=== PATIENT | female | born 1975 | race Hispanic/Latino ===

== ENCOUNTER 2018-04-12 17:37 | Emergency (ER) | payer SELFPAY ==
--- NOTE | 2018-04-12 20:26 | ER ---
Nurse's Notes [facility] Name: Mima Fisher Age: 42 yrs Sex: Female : 1975 Arrival Date: 04/12/2018 Time: 17:39 Bed 13 Private MD: None, None Diagnosis: Presentation: 04/12 17:48 Presenting complaint: Patient states: "I woke up from a nap and my blood pressure was aa5 high 187/104 and I also feel shaky, tingling all over, and I'm having chest pressure". Transition of care: patient was not received from another setting of care. Onset of symptoms was April 12, 2018. Risk Assessment: Do you want to hurt yourself or someone else? Patient reports no desire to harm self or others. Initial Sepsis Screen: Does the patient meet any 2 criteria? No. Patient's initial sepsis screen is negative. Does the patient have a suspected source of infection? No. Patient's initial sepsis screen is negative. Care prior to arrival: None. 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 - Social history:: Smoking status: Patient/guardian denies using tobacco. - Ebola Screening: : No symptoms or risks identified at this time. Vital Signs: 17:50 BP 159 / 99; Pulse 61; Resp 18 S; Temp 97.9(O); Pulse Ox 100% on R/A; Weight 72.57 kg aa5 (R); Height 5 ft. 2 in. (157.48 cm) (R); Pain 0/10; 17:50 Body Mass Index 29.26 (72.57 kg, 157.48 cm) aa5 ED Course: 17:39 Patient arrived in ED. mr 17:40 None, None is Private Physician. mr 17:48 Arm band placed on. aa5 17:49 Triage completed. aa5 18:10 EKG completed in triage. Results shown to MD. aa5 18:19 EKG done, by master automotive glass technician. dt2 20:20 Justo Licona, REGINO is PHCP. pm1 20:20 Brayan Bran MD is Attending Physician. pm1 20:25 Patient's name was called from ER maría. No response. Unable to locate patient. Will bb disposition as left without being seen by a provider. Administered Medications: No medications were administered Point of Care Testing: Blood Glucose: 17:51 Blood Glucose: 74 mg/dL; aa5 17:51 Pt states "I haven't eaten since 11 am this morning". Pt given orange juice and fruit aa5 cup in triage. Ranges: Outcome: 20:25 Patient left the ED. bb Signatures: Michelle Acharya mr Shantel Barbour, RN RN bb Tanja Torres RN RN aa5 Justo Licona NP NAVAL AIRCREWMAN OPERATOR pm1 Jose CruzHaven dt2 Corrections: (The following items were deleted from the chart) 17:53 17:48 Presenting complaint: Patient states: "I woke up from a nap and my blood pressure aa5 was high 187/104 and I also feel shaky and tingling all over" aa5 17:54 17:52 Blood Glucose: Blood Glucose Reading=74 mg/dL. aa5 aa5 18:53 17:52 Blood Glucose: Blood Glucose Reading=74 mg/dL. aa5 aa5 18:53 17:53 Blood Glucose: Notes=Pt states "I haven't eaten since 11 am this morning", Blood aa5 Glucose Reading=74 mg/dL. aa5 18:53 18:52 Blood Glucose: Notes=Pt states "I haven't eaten since 11 am this morning". Pt aa5 given orange juice and fruit cup in triage., Blood Glucose Reading=74 mg/dL. aa5
[2018-04-12 20:39] VITALS: BP 159/99; TEMP 97.9; O2SAT 100
--- NOTE | 2018-04-13 13:44 | EKG ---
Test Date: 2018-04-12 Test Time: 18:11:25 Icing Machine Operator: CLEM MEASUREMENT RESULTS: Intervals: Rate: 55 HI: 160 QRSD: 98 QT: 440 QTc: 420 [place]: P: 46 HI: 160 QRS: -3 T: 43 INTERPRETIVE STATEMENTS: Sinus bradycardia Otherwise normal ECG Compared to ECG 12/22/2017 14:44:06 No significant changes Electronically Signed On 04-13-18 13:41:50 CDT by Deion Pack
== END 2018-04-12 20:25 | disposition left against medical advice (07) ==
LOC: ER 17:37
DX: Z53.21 Procedure and treatment not carried out due to patient leaving prior to being seen by health care provider (principal)
CPT/HCPCS: 82962; 93005; 99283

== ENCOUNTER 2018-06-08 15:24 | Emergency (ER) | payer BC ==
--- NOTE | 2018-06-08 16:37 | RAD REPORT ---
EXAM DESCRIPTION: RAD - Chest Pa And Lat (2 Views) - 06/08/2018 4:31 pm CLINICAL HISTORY: COUGH Chest pain. COMPARISON: Chest Single View dated 12/22/2017; Chest Single View dated 06/13/2017; CHEST PA AND LAT 2 VIEW dated 04/13/2015 FINDINGS: The lungs are clear. The heart is normal in size. No displaced fractures. IMPRESSION: No acute or concerning finding suspected.
[2018-06-08] MEDS ORDERED: IPRATROPIUM BROM 0.5MG/2.5ML ONE (16:38)
[2018-06-08] MEDS ORDERED: BENZONATATE 100 MG CAP PO ONE (16:38)
[2018-06-08] MEDS ORDERED: ALBUTEROL 2.5 MG/3 ML NEB SOL ONE (16:38)
[2018-06-08 17:05] LABS: Urine Blood NEGATIVE (NEG); Urine Glucose NEGATIVE (NEG); Urine Protein NEGATIVE (NEG)
--- NOTE | 2018-06-08 17:19 | ER ---
Nurse's Notes [facility] Name: Mima Fisher Age: 42 yrs Sex: Female : 1975 Arrival Date: 06/08/2018 Time: 15:26 Bed 25 Private MD: Diagnosis: Acute upper respiratory infection, unspecified Presentation: 06/08 15:34 Presenting complaint: Patient states: Nasal congestion with cough for 3 days, denies aj fever. Transition of care: patient was not received from another setting of care. Onset of symptoms was June 05, 2018. Risk Assessment: Do you want to hurt yourself or someone else? Patient reports no desire to harm self or others. Initial Sepsis Screen: Does the patient meet any 2 criteria? No. Patient's initial sepsis screen is negative. Does the patient have a suspected source of infection? No. Patient's initial sepsis screen is negative. Care prior to arrival: None. 15:34 Method Of Arrival: Ambulatory aj 15:34 Acuity: TAMRA 4 aj Triage Assessment: 15:35 General: Appears in no apparent distress. comfortable, Behavior is calm, cooperative, aj appropriate for age. Pain: Denies pain. EENT: Reports nasal congestion nasal discharge. Neuro: Level of Consciousness is awake, alert, obeys commands, Oriented to person, place, time, situation, Appropriate for age. Respiratory: Reports cough that is Breath sounds are clear. Derm: Skin is intact, is healthy with good turgor, Skin is pink, warm \T\ dry. normal. 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 - Social history:: Smoking status: Patient/guardian denies using tobacco. - Ebola Screening: : Patient negative for fever greater than or equal to 101.5 degrees Fahrenheit, and additional compatible Ebola Virus Disease symptoms Patient denies exposure to infectious person Patient denies travel to an Ebola-affected area in the 21 days before illness onset No symptoms or risks identified at this time. Screenin:45 Abuse screen: Denies threats or abuse. Denies injuries from another. Nutritional hb screening: No deficits noted. Tuberculosis screening: No symptoms or risk factors identified. Fall Risk None identified. Assessment: 15:45 General: Appears in no apparent distress. Behavior is calm, cooperative. Pain: Denies hb pain. Neuro: Level of Consciousness is awake, alert, obeys commands, Oriented to person, place, time, situation. Cardiovascular: Heart tones S1 S2 present Capillary refill < 3 seconds Patient's skin is warm and dry. Respiratory: Reports cough that is non-productive, Airway is patent Trachea midline Respiratory effort is even, unlabored, Respiratory pattern is regular, symmetrical, Breath sounds are clear bilaterally. 16:45 Reassessment: Patient appears in no apparent distress at this time. No changes from hb previously documented assessment. Patient and/or family updated on plan of care and expected duration. Pain level reassessed. Patient is alert, oriented x 3, equal unlabored respirations, skin warm/dry/pink. Vital Signs: 15:35 BP 146 / 89; Pulse 74; Resp 16; Temp 98.0; Pulse Ox 98% on R/A; Weight 81.65 kg; Height aj 5 ft. 2 in. (157.48 cm); 16:30 BP 136 / 82; Pulse 88; Resp 16; Pulse Ox 100% on R/A; hb 17:23 BP 132 / 80; Pulse 86; Resp 15; Pulse Ox 100% on R/A; hb 15:35 Body Mass Index 32.92 (81.65 kg, 157.48 cm) ED Course: 15:26 Patient arrived in ED. as 15:35 Triage completed. aj 15:35 Sy Gomez PA is PHCP. cp 15:35 Sy Ngo MD is Attending Physician. cp 15:35 Arm band placed on left wrist. Patient placed in an exam room. aj 15:41 Blanca Galindo, IZABELLA is Primary Nurse. hb 15:45 Patient has correct armband on for positive identification. Placed in gown. Bed in low hb position. Call light in reach. Side rails up X 1. 16:27 X-ray completed. Portable x-ray completed in exam room. Patient tolerated procedure ml well. 16:28 XRAY Chest Pa And Lat (2 Views) In Process Unspecified. EDMS 17:39 No provider procedures requiring assistance completed. Patient did not have IV access hb during this emergency room visit. Administered Medications: 16:30 Drug: Albuterol 2.5 mg Route: Inhalation; hb 17:15 Follow up: Response: No adverse reaction hb 16:30 Drug: AtroVENT Aerosol 0.5 mg Route: Inhalation; hb 17:10 Follow up: Response: No adverse reaction hb 16:30 Drug: Tessalon Perle 200 mg Route: PO; hb 17:15 Follow up: Response: No adverse reaction hb 17:30 Drug: Tussionex Pennkinetic ER 5 ml Route: PO; hb 17:38 Follow up: Response: Medication administered at discharge. hb Outcome: 17:18 Discharge ordered by MD. cp 17:39 Discharged to home ambulatory, with significant other. hb 17:39 Condition: stable 17:39 Discharge instructions given to patient, Instructed on discharge instructions, follow up and referral plans. medication usage, Demonstrated understanding of instructions, follow-up care, medications, Prescriptions given X 3. 17:41 Patient left the ED. hb Signatures: Dispatcher [employer] EDMS Carmela Sanches, RN RN Maria L Ingram Melissa ml Page, Corey, AGUSTINA PA Blanca Mitchell, RN RN hb
--- NOTE | 2018-06-08 17:19 | EDPHYS ---
Physician Documentation [facility] Name: Mima Fisher Age: 42 yrs Sex: Female : 1975 Arrival Date: 06/08/2018 Time: 15:26 Bed 25 Private MD: ED Physician Sy Ngo HPI: 06/08 16:15 This 42 yrs old Female presents to ER via Ambulatory with complaints of cp Congestion. 16:15 The patient or guardian reports cough, that is constant. cp 16:15 Onset: The symptoms/episode began/occurred 3 day(s) ago. cp 16:15 Associated signs and symptoms: Pertinent positives: rhinorrhea, sore throat, Pertinent cp negatives: diarrhea, fever, vomiting. Severity of symptoms: in the emergency department the symptoms are unchanged despite home interventions. 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 - Social history:: Smoking status: Patient/guardian denies using tobacco. - Ebola Screening: : Patient negative for fever greater than or equal to 101.5 degrees Fahrenheit, and additional compatible Ebola Virus Disease symptoms Patient denies exposure to infectious person Patient denies travel to an Ebola-affected area in the 21 days before illness onset No symptoms or risks identified at this time. ROS: 16:20 Constitutional: Negative for body aches, chills, fever, poor PO intake. cp 16:20 Eyes: Negative for injury, pain, redness, and discharge. cp 16:20 ENT: Positive for sore throat, Negative for drainage from ear(s), ear pain, difficulty swallowing, difficulty handling secretions. 16:20 Cardiovascular: Negative for chest pain, edema, palpitations. 16:20 Respiratory: Positive for cough, with no reported sputum, Negative for shortness of breath, wheezing. 16:20 Abdomen/GI: Negative for abdominal pain, nausea, vomiting, and diarrhea, black/tarry stool, rectal bleeding. 16:20 Skin: Negative for cellulitis, rash. 16:20 Neuro: Negative for altered mental status, dizziness, headache, weakness. 16:20 All other systems are negative. Exam: 16:25 Constitutional: The patient appears in no acute distress, alert, awake, cp non-diaphoretic, non-toxic, well developed, well nourished. 16:25 Head/Face: Normocephalic, atraumatic. cp 16:25 Eyes: Periorbital structures: appear normal, Pupils: equal, round, and reactive to light and accomodation, Extraocular movements: intact throughout, Conjunctiva: normal, no exudate, no injection, Sclera: no appreciated abnormality, Lids and lashes: appear normal, bilaterally. 16:25 ENT: External ear(s): are unremarkable, Ear canal(s): are normal, clear, TM's: bulging, is not appreciated, bilaterally, dullness, bilaterally, erythema, is not appreciated, bilaterally, Nose: is normal, Mouth: Lips: moist, Oral mucosa: pink and intact, moist, Posterior pharynx: is normal, airway is patent, no erythema, no exudate, Voice: is normal. 16:25 Neck: ROM/movement: is normal, is supple, without pain, no range of motions limitations, no meningismus, no nuchal rigidity, Lymph nodes: no appreciated lymphadenopathy. 16:25 Chest/axilla: Inspection: normal, Palpation: is normal, no crepitus, no tenderness. 16:25 Cardiovascular: Rate: normal, Rhythm: regular. 16:25 Respiratory: the patient does not display signs of respiratory distress, Respirations: normal, no use of accessory muscles, no retractions, no splinting, no tachypnea, labored breathing, is not present, Breath sounds: are clear throughout, no decreased breath sounds, no stridor, no wheezing. 16:25 Abdomen/GI: Inspection: abdomen appears normal, Bowel sounds: active, all quadrants, Palpation: abdomen is soft and non-tender, in all quadrants, rebound tenderness, is not appreciated, voluntary guarding, is not appreciated, involuntary guarding, is not appreciated. 16:25 Back: pain, is absent, ROM is normal. 16:25 Skin: cellulitis, is not appreciated, no rash present. 16:25 Neuro: Orientation: to person, place \T\ time. Mentation: lucid, able to follow commands, Cerebellar function: is grossly normal, Motor: moves all fours, strength is normal, Sensation: no obvious gross deficits. Vital Signs: 15:35 BP 146 / 89; Pulse 74; Resp 16; Temp 98.0; Pulse Ox 98% on R/A; Weight 81.65 kg; Height aj 5 ft. 2 in. (157.48 cm); 16:30 BP 136 / 82; Pulse 88; Resp 16; Pulse Ox 100% on R/A; hb 17:23 BP 132 / 80; Pulse 86; Resp 15; Pulse Ox 100% on R/A; hb 15:35 Body Mass Index 32.92 (81.65 kg, 157.48 cm) aj MDM: 15:35 Patient medically screened. cp 16:00 Differential diagnosis: bronchitis, flu, URI. cp 17:17 Data reviewed: vital signs, nurses notes, lab test result(s), radiologic studies, plain cp films. 17:17 Test interpretation: by ED physician or midlevel provider: plain radiologic studies. cp Counseling: I had a detailed discussion with the patient and/or guardian regarding: the historical points, exam findings, and any diagnostic results supporting the discharge/admit diagnosis, radiology results, to return to the emergency department if symptoms worsen or persist or if there are any questions or concerns that arise at home. Response to treatment: the patient's symptoms have markedly improved after treatment, and as a result, I will discharge patient. 06/08 16:12 Order name: Influenza Screen (a \T\ B); Complete Time: 17:16 06/08 16:12 Order name: Strep; Complete Time: 17:16 06/08 16:12 Order name: XRAY Chest Pa And Lat (2 Views); Complete Time: 17:07 cp 06/08 17:07 Interpretation: Report reviewed. 06/08 16:54 Order name: Urine Dipstick--Ancillary (enter results); Complete Time: 17:07 06/08 17:11 Order name: Throat Culture [facility] 06/08 16:12 Order name: Urine Dipstick-Ancillary (obtain specimen); Complete Time: 16:49 cp Administered Medications: 16:30 Drug: Albuterol 2.5 mg Route: Inhalation; hb 17:15 Follow up: Response: No adverse reaction hb 16:30 Drug: AtroVENT Aerosol 0.5 mg Route: Inhalation; hb 17:10 Follow up: Response: No adverse reaction hb 16:30 Drug: Tessalon Perle 200 mg Route: PO; hb 17:15 Follow up: Response: No adverse reaction hb 17:30 Drug: Tussionex Pennkinetic ER 5 ml Route: PO; hb 17:38 Follow up: Response: Medication administered at discharge. Disposition: 06/08/18 17:18 Discharged to Home. Impression: Acute upper respiratory infection, unspecified. - Condition is Stable. - Discharge Instructions: Upper Respiratory Infection, Adult. - Prescriptions for Prednisone 20 mg Oral Tablet - take 2 tablet by ORAL route once daily for 5 days; 10 tablet. Albuterol Sulfate 90 mcg/actuation - inhale 1-2 puff by INHALATION route every 4-6 hours; 1 Inhaler. Guaifenesin AC 10- 100 mg/5 mL Oral Liquid - take 10 milliliters by ORAL route every 6 hours As needed; 240 milliliter. - Work release form, Medication Reconciliation Form, Thank You Letter, Antibiotic Education, Prescription Opioid Use form. - Follow up: Private Physician; When: 2 - 3 days; Reason: Recheck today's complaints. - Problem is new. - Symptoms have improved. Addendum: 06/10/2018 06:44 Co-signature as Attending Physician, Sy Ngo MD I agree with the assessment and c [facility]ina plan of care. Signatures: Dispatcher [employer] Carmela Villasenor RN RN aj Anderson, Corey, MD MD cha Page, Corey, PA PA cp Baxter, Heather, RN RN Corrections: (The following items were deleted from the chart) 06/08 16:49 16:12 Urine Test ordered. [facility] 17:41 17:18 06/08/2018 17:18 Discharged to Home. Impression: Acute upper respiratory hb infection, unspecified. Condition is Stable. Forms are Medication Reconciliation Form, Thank You Letter, Antibiotic Education, Prescription Opioid Use. Follow up: Private Physician; When: 2 - 3 days; Reason: Recheck today's complaints. Problem is new. Symptoms have improved. 06/09 17:36 06/08 17:35 Data reviewed: vital signs, nurses notes, [facility] 06/09 17:36 06/08 17:35 Antibiotic administration: Not indicated, the patient does not have an cp appreciated infiltrate, cp 06/09 17:35 Test interpretation: by ED physician or midlevel provider: plain radiologic cp studies, cp 06/09 17:35 Counseling: I had a detailed discussion with the patient and/or guardian cp regarding: the historical points, exam findings, and any diagnostic results supporting the discharge/admit diagnosis, lab results, radiology results, to return to the emergency department if symptoms worsen or persist or if there are any questions or concerns that arise at home, cp 06/09 17:35 Response to treatment: the patient's symptoms have markedly improved after cp treatment, and as a result, I will discharge patient, cp
[2018-06-08] MEDS ORDERED: HYDROCODONE/CHLORPHEN 5 ML/OSYR ONE (17:29)
[2018-06-08 17:52] VITALS: TEMP 98
[2018-06-08 17:53] VITALS: O2SAT 100
[2018-06-08 17:54] VITALS: BP 132/80
== END 2018-06-08 17:41 | disposition home or self-care (01) ==
LOC: ER 15:24
DX: J06.9 Acute upper respiratory infection, unspecified (principal); E78.5 Hyperlipidemia, unspecified; I10 Essential (primary) hypertension
CPT/HCPCS: 71046; 81003; 87070; 87081; 87804; 99284

== ENCOUNTER 2019-04-25 00:17 | Emergency (ER) | payer BC ==
--- NOTE | 2019-04-25 02:16 | EDPHYS ---
Physician Documentation [facility] Name: Mima Fisher Age: 43 yrs Sex: Female : 1975 Arrival Date: 04/25/2019 Time: 00:26 Bed 24 Private MD: DURGA Physician Sy Ngo HPI: 04/25 01:26 This 43 yrs old Female presents to ER via Ambulatory with complaints of Sore snw Throat, Ear Pain, Congestion. 01:26 The patient presents with sore throat. The patient describes throat pain as snw intermittent, raw, scratchy. Onset: The symptoms/episode began/occurred suddenly, yesterday. Severity of symptoms: At their worst the symptoms were moderate. Associated signs and symptoms: Pertinent positives: flu-like symptoms. It is unknown whether or not the patient has had similar symptoms in the past. The patient has not recently seen a physician. Historical: - Allergies: 00:38 No Known Allergies; la1 - Home Meds: 00:40 amlodipine 5 mg tab 1 tab once daily [Active]; paroxetine HCl 30 mg Oral tab BID rr5 [Active]; - PMHx: 00:38 Anxiety; Depression; Hyperlipidemia; Hypertension; la1 - Immunization history:: Adult Immunizations up to date. - Social history:: Smoking status: Patient/guardian denies using tobacco. - Ebola Screening: : No symptoms or risks identified at this time. ROS: 01:24 Constitutional: Negative for fever, chills, and weight loss, Eyes: Negative for injury, snw pain, redness, and discharge, ENT: Negative for injury, pain, and discharge, Neck: Negative for injury, pain, and swelling, Cardiovascular: Negative for chest pain, palpitations, and edema, Abdomen/GI: Negative for abdominal pain, nausea, vomiting, diarrhea, and constipation. 01:24 ENT: Negative for injury and discharge, + pain to bilateral ears, throat, and hoarse voice Back: Negative for injury and pain, : Negative for injury, bleeding, discharge, and swelling, MS/Extremity: Negative for injury and deformity, Skin: Negative for injury, rash, and discoloration, Neuro: Negative for headache, weakness, numbness, tingling, and seizure, Psych: Negative for depression, anxiety, suicide ideation, homicidal ideation, and hallucinations. 01:24 Respiratory: Positive for cough, with no reported sputum. Exam: 01:22 Constitutional: This is a well developed, well nourished patient who is awake, alert, snw and in no acute distress. Head/Face: Normocephalic, atraumatic. Eyes: Pupils equal round and reactive to light, extra-ocular motions intact. Lids and lashes normal. Conjunctiva and sclera are non-icteric and not injected. Cornea within normal limits. Periorbital areas with no swelling, redness, or edema. ENT: Nares patent. No nasal discharge, no septal abnormalities noted. Tympanic membranes are normal and external auditory canals are clear. Oropharynx with no redness, swelling, or masses, exudates, or evidence of obstruction, uvula midline. Mucous membranes moist. Neck: Trachea midline, no thyromegaly or masses palpated. + anterior cervical lymphadenopathy. Supple, full range of motion without nuchal rigidity, or vertebral point tenderness. No Meningismus. + hoarse voice Chest/axilla: Normal chest wall appearance and motion. Nontender with no deformity. No lesions are appreciated. Cardiovascular: Regular rate and rhythm with a normal S1 and S2. No gallops, murmurs, or rubs. Normal PMI, no JVD. No pulse deficits. Respiratory: Lungs have equal breath sounds bilaterally, congested breath sounds to auscultation. No rales, rhonchi or wheezes noted. No increased work of breathing, no retractions or nasal flaring. Abdomen/GI: Soft, non-tender, with normal bowel sounds. No distension or tympany. No guarding or rebound. No evidence of tenderness throughout. Back: No spinal tenderness. No costovertebral tenderness. Full range of motion. Skin: Warm, dry with normal turgor. Normal color with no rashes, no lesions, and no evidence of cellulitis. MS/ Extremity: Pulses equal, no cyanosis. Neurovascular intact. Full, normal range of motion. Neuro: Awake and alert, GCS 15, oriented to person, place, time, and situation. Cranial nerves II-XII grossly intact. Motor strength 5/5 in all extremities. Sensory grossly intact. Cerebellar exam normal. Normal gait. Psych: Awake, alert, with orientation to person, place and time. Behavior, mood, and affect are within normal limits. Vital Signs: 00:38 BP 163 / 93; Pulse 77; Resp 14; Temp 98.7; Pulse Ox 98% on R/A; Weight 74.84 kg; Height la1 5 ft. 2 in. (157.48 cm); 01:35 BP 161 / 90; Pulse 75; Resp 16; Temp 98.5; Pulse Ox 99% ; rr5 02:00 BP 141 / 70; Pulse 82; Resp 16; Pulse Ox 98% ; rr5 02:40 BP 129 / 86; Pulse 71; Resp 16; Temp 98.5; Pulse Ox 99% on R/A; rr5 00:38 Body Mass Index 30.18 (74.84 kg, 157.48 cm) la1 MDM: 00:31 Patient medically screened. snw 02:18 Data reviewed: vital signs, nurses notes. Data interpreted: Pulse oximetry: on room air snw is 98 %. Interpretation: normal. Counseling: I had a detailed discussion with the patient and/or guardian regarding: the historical points, exam findings, and any diagnostic results supporting the discharge/admit diagnosis, radiology results, the need for outpatient follow up, to return to the emergency department if symptoms worsen or persist or if there are any questions or concerns that arise at home. Special discussion: I have referred the patient to see his PCP for further evaluation of high blood pressure. Based on the history and exam findings, there is no indication for further emergent testing or inpatient evaluation. I discussed with the patient/guardian the need to see the primary care provider for further evaluation of the symptoms. 04/25 01:11 Order name: Chest Pa And Lat (2 Views) XRAY snw Administered Medications: 02:25 Drug: Decadron 8 mg Route: PO; rr5 02:43 Follow up: Response: Medication administered at discharge. rr5 02:28 Drug: Zithromax 500 mg Route: PO; rr5 02:43 Follow up: Response: Medication administered at discharge. rr5 Disposition: 07:14 Co-signature as Attending Physician, Sy Ngo MD I agree with the assessment and fior plan of care. Disposition: 04/25/19 02:15 Discharged to Home. Impression: Bronchitis, not specified as acute or chronic, Acute laryngitis, Pneumonia, unspecified organism. - Condition is Stable. - Discharge Instructions: Acute Bronchitis, Adult, Hypertension, Laryngitis, Community-Acquired Pneumonia, Adult, Cool Mist Vaporizer, Cough, Adult. - Prescriptions for Tessalon Perles 100 mg Oral Capsule - take 1 capsule by ORAL route every 8 hours As needed; 15 capsule. Zithromax Z- Fransisco 250 mg Oral Tablet - take 1 tablet by ORAL route as directed for 5 days Day 1 - take two (2) tablets one time. Day 2, 3, 4 , 5 take one (1) tablet once daily.; 6 tablet. - Work release form, Medication Reconciliation Form, Thank You Letter, Antibiotic Education, Prescription Opioid Use form. - Follow up: Emergency Department; When: As needed; Reason: Worsening of condition. Follow up: Private Physician; When: 2 - 3 days; Reason: Recheck today's complaints, Continuance of care, Re-evaluation by your physician. Signatures: Dispatcher [employer] EDSy Vigil, Jacquie Peterson MD, cha, ACQUISITIONS ANALYST-C ACQUISITIONS ANALYST-Csnw Hermann Mckinney RN RN la1 Georges Bob RN RN rr5 Corrections: (The following items were deleted from the chart) 02:44 02:15 04/25/2019 02:15 Discharged to Home. Impression: Bronchitis, not specified as rr5 acute or chronic; Acute laryngitis; Pneumonia, unspecified organism. Condition is Stable. Forms are Medication Reconciliation Form, Thank You Letter, Antibiotic Education, Prescription Opioid Use. Follow up: Emergency Department; When: As needed; Reason: Worsening of condition. Follow up: Private Physician; When: 2 - 3 days; Reason: Recheck today's complaints, Continuance of care, Re-evaluation by your physician. snw
--- NOTE | 2019-04-25 02:16 | ER ---
Nurse's Notes [facility] Name: Mima Fisher Age: 43 yrs Sex: Female : 1975 Arrival Date: 04/25/2019 Time: 00:26 Bed 24 Private MD: Diagnosis: Bronchitis, not specified as acute or chronic;Acute laryngitis;Pneumonia, unspecified organism Presentation: 04/25 00:37 Presenting complaint: Patient states: sore throat, ear pain, HERRING, sinus pressure since la1 yesterday. Transition of care: patient was not received from another setting of care. Onset of symptoms was April 25, 2019. Risk Assessment: Do you want to hurt yourself or someone else? Patient reports no desire to harm self or others. Initial Sepsis Screen: Does the patient meet any 2 criteria? No. Patient's initial sepsis screen is negative. Does the patient have a suspected source of infection? No. Patient's initial sepsis screen is negative. Care prior to arrival: None. 00:37 Method Of Arrival: Ambulatory la1 00:37 Acuity: TAMRA 4 la1 Historical: - Allergies: 00:38 No Known Allergies; la1 - Home Meds: 00:40 amlodipine 5 mg tab 1 tab once daily [Active]; paroxetine HCl 30 mg Oral tab BID rr5 [Active]; - PMHx: 00:38 Anxiety; Depression; Hyperlipidemia; Hypertension; la1 - Immunization history:: Adult Immunizations up to date. - Social history:: Smoking status: Patient/guardian denies using tobacco. - Ebola Screening: : No symptoms or risks identified at this time. Screenin:04 Abuse screen: Denies threats or abuse. Denies injuries from another. Nutritional rr5 screening: No deficits noted. Tuberculosis screening: No symptoms or risk factors identified. Fall Risk None identified. Total Salazar Fall Scale indicates No Risk (0-24 pts). Assessment: 00:40 General: Appears in no apparent distress. uncomfortable, Behavior is calm, cooperative, rr5 appropriate for age. 00:40 Pain: Complains of pain in throat and ear Pain does not radiate. Pain currently is 7 rr5 out of 10 on a pain scale. Quality of pain is described as aching, Pain began gradually, Is intermittent. Neuro: Level of Consciousness is awake, alert, obeys commands, Oriented to person, place, time, situation, Appropriate for age. Cardiovascular: Capillary refill < 3 seconds Patient's skin is warm and dry. Respiratory: Reports congestion Airway is patent Respiratory effort is even, unlabored, Respiratory pattern is regular, symmetrical. GI: No signs and/or symptoms were reported involving the gastrointestinal system. : No signs and/or symptoms were reported regarding the genitourinary system. EENT: Throat is clear with gag reflex present, Reports pain in left ear and right ear. Derm: Skin is intact, Skin temperature is warm. Musculoskeletal: Capillary refill < 3 seconds, Range of motion: intact in all extremities. 00:40 Respiratory: congested. rr5 01:30 Reassessment: Patient appears in no apparent distress at this time. Patient is alert, rr5 oriented x 3, equal unlabored respirations, skin warm/dry/pink. no complaints made. awaiting for result. 02:40 Reassessment: Patient appears in no apparent distress at this time. Patient is alert, rr5 oriented x 3, equal unlabored respirations, skin warm/dry/pink. discharge instruction given and explained without complaints made. Patient states feeling better. Patient states symptoms have improved. Vital Signs: 00:38 BP 163 / 93; Pulse 77; Resp 14; Temp 98.7; Pulse Ox 98% on R/A; Weight 74.84 kg; Height la1 5 ft. 2 in. (157.48 cm); 01:35 BP 161 / 90; Pulse 75; Resp 16; Temp 98.5; Pulse Ox 99% ; rr5 02:00 BP 141 / 70; Pulse 82; Resp 16; Pulse Ox 98% ; rr5 02:40 BP 129 / 86; Pulse 71; Resp 16; Temp 98.5; Pulse Ox 99% on R/A; rr5 00:38 Body Mass Index 30.18 (74.84 kg, 157.48 cm) la1 ED Course: 00:26 Patient arrived in ED. am2 00:31 Jacquie Romero FNP-C is PHCP. snw 00:31 Sy Ngo MD is Attending Physician. snw 00:37 Triage completed. la1 00:38 Arm band placed on left wrist. la1 00:49 Georges Bob RN is Primary Nurse. rr5 01:00 Patient has correct armband on for positive identification. Bed in low position. Call rr5 light in reach. Side rails up X2. 01:52 X-ray completed. Patient tolerated procedure well. kw 02:03 Chest Pa And Lat (2 Views) XRAY In Process Unspecified. EDMS 02:40 No provider procedures requiring assistance completed. Patient did not have IV access rr5 during this emergency room visit. Administered Medications: 02:25 Drug: Decadron 8 mg Route: PO; rr5 02:43 Follow up: Response: Medication administered at discharge. rr5 02:28 Drug: Zithromax 500 mg Route: PO; rr5 02:43 Follow up: Response: Medication administered at discharge. rr5 Outcome: 02:15 Discharge ordered by MD. snw 02:40 Discharged to home ambulatory, with family. rr5 02:40 Condition: stable 02:40 Discharge instructions given to patient, Instructed on discharge instructions, follow up and referral plans. medication usage, Demonstrated understanding of instructions, follow-up care, medications, Prescriptions given X 2. 02:44 Patient left the ED. rr5 Signatures: Dispatcher [employer] EDMS Jacquie Romero, FRUIT PICKER-C FRUIT PICKER-Csnw Bailee Michael Lee, RN RN Carmela Reilly Raymond, RN RN rr5
[2019-04-25] MEDS ORDERED: AZITHROMYCIN 250 MG TAB ONE (02:40)
[2019-04-25] MEDS ORDERED: DEXAMETHASONE 4 MG TAB ONE (02:40)
[2019-04-25 04:10] VITALS: TEMP 98.5
[2019-04-25 04:13] VITALS: BP 129/86; O2SAT 99
--- NOTE | 2019-04-25 08:30 | RAD REPORT ---
EXAM DESCRIPTION: Jayesh Haq (2 Views)04/25/2019 2:01 am CLINICAL HISTORY: Cough COMPARISON: May 2018 FINDINGS: The lungs appear clear of acute infiltrate. The heart is normal size IMPRESSION: No acute abnormalities displayed
== END 2019-04-25 02:44 | disposition home or self-care (01) ==
LOC: ER 00:17
DX: J40 Bronchitis, not specified as acute or chronic (principal); J04.0 Acute laryngitis; J18.9 Pneumonia, unspecified organism; F41.9 Anxiety disorder, unspecified; F32.9 Major depressive disorder, single episode, unspecified; E78.5 Hyperlipidemia, unspecified; I10 Essential (primary) hypertension
CPT/HCPCS: 71046; 99283

== ENCOUNTER 2021-05-01 02:50 | Emergency (ER) | payer BC ==
--- OUTSIDE RECORDS SUMMARY | 2021-05-01 02:52 | XMS REPORT | Continuity of Care Document ---
:1975 Author Organization [facility] t Address [address] [place] [address] Care Team Providers Name Role Phone Unavailable Unavailable Unavailable Problems This patient has no known problems. Allergies, Adverse Reactions, Alerts This patient has no known allergies or adverse reactions. Medications This patient has no known medications. Procedures This patient has no known procedures. Results Test Description Test Time Test Comments Results Result [facility] e Comments BREAST ULTRASOUND 2020-01-12 - DIAG MAMM BILATERAL BILATERAL 12:35:53 [facility] CAD DIGITALBILATERAL DIGITAL DIAGNOSTIC MAMMOGRAM 3D/2D WITH CAD: 01/12/2020CLINICAL: 6 Month follow-up. Digital breast tomosynthesis was performed in addition to routine CC and MLO views. Current mammographic images were evaluated by either a [employer] M-Vu or a [employer] ImageChecker CAD (computer aided detection system). Comparison is made to exam dated 07/01/2019 mammogram - [facility]. The tissue of both breasts is heterogeneously dense. This may lower the sensitivity of mammography. There are nodular densities that most likely represent benign fibroadenomas, cysts, or nodular breast tissue, however this must be confirmed with ultrasound. No suspicious mass, architectural distortion, malignant type calcification, or lymph node abnormality detected. NEGATIVEBilateral ultrasound pending for additional evaluation. - BREAST ULTRASOUND BILATERALULTRASOUND OF BOTH BREASTS AND BOTH AXILLA: 01/12/2020Comparison is made to exam dated 07/01/2019 mammogram - [facility]. Real-time ultrasound of both breasts and both axilla and clinical breast exam were performed. No abnormalities were seen sonographically in either axilla. Benign solid masses. No evidence of malignancy. Unchanged from previous exam. IMPRESSION: BENIGN There is no sonographic evidence of malignancy. Patient has been informed that she has areas of dense breast tissue that could make it difficult to find a small cancer. A screening mammogram and supplemental ultrasound for dense breast tissue is recommended in 1 year.Desiree Dahl M.D. dm/:01/12/2020 12:35:53 Director Hardware: Marley WEIR, [facility]-FWletter sent: BIRADS 1-2 Combo FU Letter Mammogram BI-RADS: 1 Negative Ultrasound BI-RADS: 2 Benign DIAG MAMM 2020-01-12 - DIAG MAMM BILATERAL BILATERAL [facility] 12:35:53 [facility] CAD CAD DIGITAL DIGITALBILATERAL DIGITAL DIAGNOSTIC MAMMOGRAM 3D/2D WITH CAD: 01/12/2020CLINICAL: 6 Month follow-up. Digital breast tomosynthesis was performed in addition to routine CC and MLO views. Current mammographic images were evaluated by either a [employer] M-Vu or a [employer] CAD (computer aided detection system). Comparison is made to exam dated 07/01/2019 mammogram - [facility]. The tissue of both breasts is heterogeneously dense. This may lower the sensitivity of mammography. There are nodular densities that most likely represent benign fibroadenomas, cysts, or nodular breast tissue, however this must be confirmed with ultrasound. No suspicious mass, architectural distortion, malignant type calcification, or lymph node abnormality detected. NEGATIVEBilateral ultrasound pending for additional evaluation. - BREAST ULTRASOUND BILATERALULTRASOUND OF BOTH BREASTS AND BOTH AXILLA: 01/12/2020Comparison is made to exam dated 07/01/2019 mammogram - [facility]. Real-time ultrasound of both breasts and both axilla and clinical breast exam were performed. No abnormalities were seen sonographically in either axilla. Benign solid masses. No evidence of malignancy. Unchanged from previous exam. IMPRESSION: BENIGN There is no sonographic evidence of malignancy. Patient has been informed that she has areas of dense breast tissue that could make it difficult to find a small cancer. A screening mammogram and supplemental ultrasound for dense breast tissue is recommended in 1 year.Desiree Dahl M.D. dm/:01/12/2020 12:35:53 Director Hardware: Marley WEIR, [facility]-FWletter sent: BIRADS 1-2 Combo FU Letter Mammogram BI-RADS: 1 Negative Ultrasound BI-RADS: 2 Benign BREAST ULTRASOUND 2019-08-08 - BREAST ULTRASOUND BILATERAL 13:52:45 BILATERALULTRASOUND OF BOTH BREASTS AND BOTH AXILLA: 08/08/2019CLINICAL: Abnormal mammogram. No prior exams were available for comparison. Real-time ultrasound of both breasts and both axilla and clinical breast exam were performed. There is a 1.1 cm oval mass in the left breast at 2 o'clock, 1 cm from the nipple and a 1.7 cm mass in the left breast at 7 o'clock, 2 cm from the nipple, that correspond to the mammographic findings. Color flow imaging demonstrates that there is no increase in vascularity. No abnormalities were seen sonographically in the right breast or either axilla. IMPRESSION: PROBABLY BENIGN - FOLLOW-UP RECOMMENDEDA follow-up mammogram and an ultrasound in 6 months is recommended to demonstrate stability. Desiree Dahl M.D. dm/:08/08/2019 13:52:45 Director Hardware: Sanjuanita Mack FW, [facility]-FWletter sent: Short Term Follow Up Ultrasound BI-RADS: 3 Probably benign SCR MAMM 2019-07-04 - SCR MAMM BILATERAL BILATERAL [facility] 10:21:02 [facility] CAD CAD DIGITAL DIGITALBILATERAL [facility] DIGITAL SCREENING MAMMOGRAM 3D/2D WITH CAD: 07/01/2019CLINICAL: Asymptomatic. Digital breast tomosynthesis was performed in addition to routine CC and MLO views. Current mammographic images were evaluated by either a [employer] M-Vu or a [employer] ImageChecker CAD (computer aided detection system). No prior exams were available for comparison. This is a baseline exam.The tissue of both breasts is heterogeneously dense. This may lower the sensitivity of mammography. There is a benign-appearing mass in the periareolar lateral left breast. A larger benign-appearing mass is noted superficially in the left breast lower inner quadrant 5-6 cm from the nipple. No suspicious architectural distortion, malignant type calcification, or lymph node abnormality detected. IMPRESSION: INCOMPLETE ASSESSMENT: ADDITIONAL IMAGING EVALUATION RECOMMENDEDPrior exams are unavailable for stability assessment.Breast ultrasound is advised for further evaluation.Pillo Chi M.D. rb/:07/04/2019 10:21:02 Director Hardware: Virginia Martinez MM, [facility] sent: Additional Imaging Mammogram BI-RADS: 0 Indeterminate
--- NOTE | 2021-05-01 03:28 | ER ---
Nurse's Notes [facility] Name: Mima Fisher Age: 45 yrs Sex: Female : 1975 Arrival Date: 05/01/2021 Time: 02:53 Bed 13 Private MD: Diagnosis: Tonsillitis, Exudative Pharyngitis Presentation: 05/01 03:07 Chief complaint: Patient states: I have been having sore throat for [address] [facility] screen: Client denies travel out of the [place] in the last 14 days. sore throat, Client presents with at least one sign or symptom that may indicate coronavirus-19. Standard/surgical mask placed on the client. Coronavirus screen: The client reports previous COVID testing was negative. Ebola Screen: Patient negative for fever greater than or equal to 101.5 degrees Fahrenheit, and additional compatible Ebola Virus Disease symptoms Patient denies exposure to infectious person. Patient denies travel to an Ebola-affected area in the 21 days before illness onset. Initial Sepsis Screen: Does the patient meet any 2 criteria? No. Patient's initial sepsis screen is negative. Does the patient have a suspected source of infection? No. Patient's initial sepsis screen is negative. Risk Assessment: Do you want to hurt yourself or someone else? Patient reports no desire to harm self or others. Onset of symptoms was April 24, 2021. 03:07 Method Of Arrival: Ambulatory 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 Historical: - Allergies: 03:10 No Known Allergies; [facility] - Home Meds: 03:10 amlodipine 5 mg tab 1 tab once daily [Active]; paroxetine HCl 30 mg Oral tab BID [facility] [Active]; - PMHx: 03:10 Anxiety; Depression; Hyperlipidemia; Hypertension; [facility] - PSHx: 03:10 Hysterectomy; [facility] - Immunization history:: Adult Immunizations Client reports having NOT received the Covid vaccine. - Social history:: Smoking status: Patient denies any tobacco usage or history of. Screenin:10 Abuse screen: Denies threats or abuse. Denies injuries from another. Nutritional 8 screening: No deficits noted. Tuberculosis screening: No symptoms or risk factors identified. Fall Risk None identified. Assessment: 03:11 General: Appears in no apparent distress. comfortable, Behavior is calm, cooperative, jm8 appropriate for age. Pain: Complains of pain in neck Pain currently is 10 out of 10 on a pain scale. Neuro: No deficits noted. Neuro: Level of Consciousness is awake, alert, obeys commands, Oriented to person, place, time. Cardiovascular: No deficits noted. Respiratory: Airway is patent Trachea midline Respiratory effort is even, unlabored, Respiratory pattern is regular, symmetrical, Breath sounds are clear. GI: No deficits noted. No signs and/or symptoms were reported involving the gastrointestinal system. : No deficits noted. No signs and/or symptoms were reported regarding the genitourinary system. EENT: Throat is pink has enlarged tonsils. Derm: No deficits noted. No signs and/or symptoms reported regarding the dermatologic system. Musculoskeletal: No deficits noted. No signs and/or symptoms reported regarding the musculoskeletal system. Vital Signs: 03:07 BP 164 / 100; Pulse 74; Resp 16; Temp 98; Pulse Ox 97% on R/A; Weight 79.38 kg; Height 8 5 ft. 2 in. (157.48 cm); 03:07 Body Mass Index 32.01 (79.38 kg, 157.48 cm) [facility] ED Course: 02:53 Patient arrived in ED. am4 03:06 Demetris Tucker MD is Attending Physician. [facility] 03:09 Triage completed. 8 03:10 Arm band placed on right wrist. jm8 03:10 Patient has correct armband on for positive identification. Bed in low position. Call [facility] light in reach. Side rails up X2. Adult w/ patient. 03:27 Zamzam Parsons MD is Referral Physician. [facility] 03:35 No provider procedures requiring assistance completed. Patient did not have IV access 8 during this emergency room visit. Administered Medications: 03:30 Drug: Bicillin L-A (penicillin G Benzathine) 1.2 million units Route: IM; Site: right 8 ventrogluteal; 03:34 Follow up: Response: No adverse reaction; Medication administered at discharge. [facility] Outcome: 03:28 Discharge ordered by . [facility] 03:35 Discharged to home ambulatory, with family. [facility] 03:35 Condition: good 03:35 Discharge instructions given to patient, Instructed on discharge instructions, follow up and referral plans. medication usage, Demonstrated understanding of instructions, follow-up care, medications. 03:35 Patient left the ED. jmSara Signatures: Demetris Tucker MD MD 7 Josselyn Paul Joseph, RN RN jm8 Corrections: (The following items were deleted from the chart) 03:12 03:11 Respiratory: Airway jose garcia
--- NOTE | 2021-05-01 03:28 | EDPHYS ---
Physician Documentation [facility] Name: Mima Fisher Age: 45 yrs Sex: Female : 1975 Arrival Date: 05/01/2021 Time: 02:53 Bed 13 Private MD: DURGA Physician Demetris Tucker HPI: 05/01 03:22 This 45 yrs old Female presents to ER via Ambulatory with complaints of Sore mh7 Throat. 03:22 The patient presents with sore throat. The patient describes throat pain as constant. mh7 Onset: The symptoms/episode began/occurred 1 week(s) ago. Severity of symptoms: At their worst the symptoms were moderate, 5 day(s) ago, in the emergency department the symptoms are unchanged. Modifying factors: The symptoms are alleviated by over the counter medications, NSAIDs, the symptoms are aggravated by nothing. Associated signs and symptoms: Pertinent negatives chest pain, chills, cough, diarrhea, dysphagia, earache, fever, flu-like symptoms, headache, nausea, rhinorrhea, shortness of breath, vomiting. 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 - Social history:: Smoking status: Patient denies any tobacco usage or history of. ROS: 03:22 Constitutional: Negative for fever, chills, and weight loss, Eyes: Negative for injury, mh7 pain, redness, and discharge, Neck: Negative for injury, pain, and swelling, Cardiovascular: Negative for chest pain, palpitations, and edema, Respiratory: Negative for shortness of breath, cough, wheezing, and pleuritic chest pain, Abdomen/GI: Negative for abdominal pain, nausea, vomiting, diarrhea, and constipation, Back: Negative for injury and pain, : Negative for injury, bleeding, discharge, and swelling, MS/Extremity: Negative for injury and deformity, Skin: Negative for injury, rash, and discoloration, Neuro: Negative for headache, weakness, numbness, tingling, and seizure, Psych: Negative for depression, anxiety, suicide ideation, homicidal ideation, and hallucinations, Allergy/Immunology: Negative for hives, rash, and allergies, Endocrine: Negative for neck swelling, polydipsia, polyuria, polyphagia, and marked weight changes, Hematologic/Lymphatic: Negative for swollen nodes, abnormal bleeding, and unusual bruising. Exam: 03:22 Constitutional: This is a well developed, well nourished patient who is awake, alert, mh7 and in no acute distress. Head/Face: Normocephalic, atraumatic. Eyes: Pupils equal round and reactive to light, extra-ocular motions intact. Lids and lashes normal. Conjunctiva and sclera are non-icteric and not injected. Cornea within normal limits. Periorbital areas with no swelling, redness, or edema. 03:22 Neck: Trachea midline, no thyromegaly or masses palpated, and no cervical lymphadenopathy. Supple, full range of motion without nuchal rigidity, or vertebral point tenderness. No Meningismus. Chest/axilla: Normal chest wall appearance and motion. Nontender with no deformity. No lesions are appreciated. Cardiovascular: Regular rate and rhythm with a normal S1 and S2. No gallops, murmurs, or rubs. Normal PMI, no JVD. No pulse deficits. Respiratory: Lungs have equal breath sounds bilaterally, clear to auscultation and percussion. No rales, rhonchi or wheezes noted. No increased work of breathing, no retractions or nasal flaring. Abdomen/GI: Soft, non-tender, with normal bowel sounds. No distension or tympany. No guarding or rebound. No evidence of tenderness throughout. Back: No spinal tenderness. No costovertebral tenderness. Full range of motion. Skin: Warm, dry with normal turgor. Normal color with no rashes, no lesions, and no evidence of cellulitis. MS/ Extremity: Pulses equal, no cyanosis. Neurovascular intact. Full, normal range of motion. Neuro: Awake and alert, GCS 15, oriented to person, place, time, and situation. Cranial nerves II-XII grossly intact. Motor strength 5/5 in all extremities. Sensory grossly intact. Cerebellar exam normal. Normal gait. Psych: Awake, alert, with orientation to person, place and time. Behavior, mood, and affect are within normal limits. 03:22 ENT: External ear(s): are unremarkable, Ear canal(s): are normal, TM's: are normal, Nose: is normal, Mouth: is normal, Posterior pharynx: Airway: normal, Tonsils: bilaterally enlarged, with erythema, with exudate, Uvula: normal, swelling, is not appreciated, erythema, that is mild, exudate, that is mild, peritonsillar mass, is not appreciated, pooling of secretions, is not appreciated, Dental exam: normal, Voice: is normal. Vital Signs: 03:07 BP 164 / 100; Pulse 74; Resp 16; Temp 98; Pulse Ox 97% on R/A; Weight 79.38 kg; Height [facility] 5 ft. 2 in. (157.48 cm); 03:07 Body Mass Index 32.01 (79.38 kg, 157.48 cm) [facility] MDM: 03:22 Differential diagnosis: group A strep tonsillitis, pharyngitis, tonsillitis, uvulitis. [facility] Data reviewed: vital signs, nurses notes. Data interpreted: Pulse oximetry: on room air is 97 %. Interpretation: normal. Counseling: I had a detailed discussion with the patient and/or guardian regarding: the historical points, exam findings, and any diagnostic results supporting the discharge/admit diagnosis, the need for outpatient follow up, to return to the emergency department if symptoms worsen or persist or if there are any questions or concerns that arise at home. 03:28 Patient medically screened. [facility] 05/01 03:22 Order name: Group A Streptococcus Rapid Ms EDMS Administered Medications: 03:30 Drug: Bicillin L-A (penicillin G Benzathine) 1.2 million units Route: IM; Site: right [facility] ventrogluteal; 03:34 Follow up: Response: No adverse reaction; Medication administered at discharge. [facility] Disposition: 05/01/21 03:28 Discharged to Home. Impression: Tonsillitis, Exudative Pharyngitis. - Condition is Stable. - Discharge Instructions: Tonsillitis, [id number], Pharyngitis, [id number]. - Medication Reconciliation Form, Thank You Letter, Antibiotic Education, Prescription Opioid Use, Work release form form. - Follow up: Private Physician; When: 1 - 2 days; Reason: Worsening of condition, Recheck today's complaints, Continuance of care, Re-evaluation by your physician. Follow up: Zamzam Parsons MD; When: 1 - 2 days; Reason: Worsening of condition, Recheck today's complaints. - Problem is an ongoing problem. - Symptoms have improved. 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 Impression: Tonsillitis, Exudative jm8 Pharyngitis. Condition is Stable. Forms are Medication Reconciliation Form, Thank You Letter, Antibiotic Education, Prescription Opioid Use. Follow up: Private Physician; When: 1 - 2 days; Reason: Worsening of condition, Recheck today's complaints, Continuance of care, Re-evaluation by your physician. Follow up: Zamzam Parsons; When: 1 - 2 days; Reason: Worsening of condition, Recheck today's complaints. Problem is an ongoing problem. Symptoms have improved. mh7
[2021-05-01] MEDS ORDERED: PEN G BENZ LA 1.2MU/2ML SYRINGE IM ONE (03:47)
[2021-05-01 03:51] VITALS: BP 164/100; TEMP 98; O2SAT 97
== END 2021-05-01 03:35 | disposition home or self-care (01) ==
LOC: ER 02:50
DX: J03.90 Acute tonsillitis, unspecified (principal); I10 Essential (primary) hypertension; F41.8 Other specified anxiety disorders
CPT/HCPCS: 96372; 99283; J0561

== ENCOUNTER 2023-04-28 13:37 | Emergency (ER) | payer SELFPAY ==
--- OUTSIDE RECORDS SUMMARY | 2023-04-28 13:41 | XMS REPORT | Continuity of Care Document ---
:1975 Author Organization [facility] t Address [address] [place] [address] [address] [place] [address] Care Team Providers Name Role Phone Unavailable Unavailable Unavailable Problems This patient has no known problems. Allergies, Adverse Reactions, Alerts This patient has no known allergies or adverse reactions. Medications This patient has no known medications. Procedures This patient has no known procedures. Encounters Start End Encounter Admission Attending Care Care Encounter Source Date/Time Date/Time Type Type Clinicians Facility Department ID 2023-04-23 2023-04-23 Outpatient [facility] [id number] [id number] [place] 14:27:41 14:27:41 0615 [facility] 2023-02-05 2023-02-05 Outpatient [facility] [id number] 023 [place] 09:59:38 09:59:38 0330 [facility] [place] 2023-01-13 2023-01-13 Outpatient [facility] [id number] [id number] [place] 16:03:06 16:03:06 [id number] [facility] 2023-01-12 2023-01-12 Outpatient [facility] [id number] [id number] [place] 08:26:25 08:26:25 [id number] [facility] 2022-10-14 2022-10-14 Outpatient [facility] [id number] 022 [place] 11:01:33 11:01:33 [id number] [facility] Results Test Description Test Time Test Comments Results Result Comments Source VITAMIN D, 25 OH 2023-04-24 10:01:20 Test Item Value Reference Range Interpretation Comme nts VITAMIN D, 25 OH (test 23 NG/ML SEE BELOW L E FFECTIVE 11/17/2022, PLEASE NOTE code = 4958) NEW METHODOLOGY IS ELECTROCHEMILUM INESCENCE BINDING ASSAY. NOTE: 25-HYDROX YVITAMIN D ASSAY INCLUDES 25-HYDROXYVITAM IN D2 AND D3. INTERPRETIVE RA NGES PEDIATRIC (<17 YEARS) . . . . . . . . . . . NG/ML 20-100ADULT: IN SUFFICIENT . . . . . . . . . . . . . . N G/ML <20 SUBOPTIMAL . . . . . . . . . . . . . . . NG/ML 20-29 OPTIMAL . . . . . . . . . . . . . . . . . NG/ML 30-100 UNLESS OTHERWISE INDICATED, ALL TESTING PERFORMED AT [facility] [employer]. [address] [place] [id number] FANCY STITCHER: RAMÓN MCDONNELL M.D. CLIA NUMBER [id number] [facility] [place] [place]. [id number] CBC W/AUTO DIFF WITH [id number] 02:31:11 Test Item Value Reference Range Interpretation Comments WBC (test code = 5.5 K/UL 3.5-11.0 1001) RBC (test code = 3.41 M/UL 3.80-5.40 L 1002) HEMOGLOBIN (test code 10.6 G/DL 11.5-15.5 L = 1003) HEMATOCRIT (test code 32.6 % 34.0-45.0 L = 1004) MCV (test code = 95.6 fL 80.0-99.0 1005) MCH (test code = 31.1 PG 25.0-33.0 1006) MCHC (test code = 32.5 G/DL 31.0-36.0 1007) RDW (test code = 12.1 % 11.5-15.0 1038) NEUTROPHILS (test 59.5 % code = 1008) LYMPHOCYTES (test 32.4 % code = 1010) MONOCYTES (test code 5.5 % = 1011) EOSINOPHILS (test 1.8 % code = 1012) BASOPHILS (test code 0.4 % = 1013) IMMATURE GRANULOCYTES 0.4 % (test code = 1036) NUCLEATED RBCS (test 0.0 /100 WBC'S See_Comment [Aut omated code = 1065) message] The sy stem which generated this result transmitted reference range : 0.0. The refere nce range was not u sed to interpret th is result as normal/abnormal . PLATELET COUNT (test 235 K/UL 130-400 code = 1015) ABSOLUTE NEUTROPHILS 3.28 K/UL 1.50-7.50 (test code = 1066) ABSOLUTE LYMPHOCYTES 1.78 K/UL 1.00-4.00 (test code = 1067) ABSOLUTE MONOCYTES 0.30 K/UL 0.2-3.8 (test code = 1068) ABSOLUTE EOSINOPHILS 0.10 K/UL 0.00-0.50 (test code = 1040) ABSOLUTE BASOPHILS 0.02 K/UL 0.00-0.20 (test code = 1069) ABS IMMATURE 0.02 K/UL 0.00-0.10 GRANULOCYTES (test code = 1020) ABS NUCLEATED RBCS 0.00 K/UL 0.00-0.11 (test code = 86372) COMPREHENSIVE METABOLIC [id number] 06:18:12 Test Item Value Reference Range Interpretation Comments GLUCOSE (test code = 132 MG/DL 70-99 H 2216) BUN (test code = 14 MG/DL 6-20 2207) CREATININE (test 0.57 MG/DL 0.60-1.30 L code = 2214) eGFR (2020 CKD-EPI) 113 >60 (test code = 72703) ML/MIN/1.73 CALC BUN/CREAT (test 25 RATIO 6-28 code = 2235) SODIUM (test code = 142 MEQ/L 340-349 0480) POTASSIUM (test code 3.9 MEQ/L 3.5-5.4 = 2227) CHLORIDE (test code 104 MEQ/L 95-107 = 2214) CARBON DIOXIDE (test 27 MEQ/L 19-31 code = 220) CALCIUM (test code = 10.1 MG/DL 8.5-10.5 2208) PROTEIN, TOTAL (test 7.9 G/DL 6.1-8.3 code = 2229) ALBUMIN (test code = 4.9 G/DL 3.5-5.2 2200) CALC GLOBULIN (test 3.0 G/DL 1.9-3.7 code = 2240) CALC A/G RATIO (test 1.6 RATIO 1.0-2.6 code = 2234) BILIRUBIN, TOTAL 0.3 MG/DL See_Comment [Automated message] (test code = 2207) The syste [employer] which generated this result transmit trell reference range : <=1.2. The refe rence range was not u sed to interpret th is result as normal/abnormal . ALKALINE PHOSPHATASE 96 U/L 40-120 (test code = 2204) AST (test code = 29 U/L 9-40 2217) ALT (test code = 33 U/L 5-40 2218) LIPID [id number] 06:18:12 Test Item Value Reference Range Interpretation Comments CHOLESTEROL (test 180 MG/DL <200 code = 2210) TRIGLYCERIDES (test 91 MG/DL <150 code = 2232) HDL CHOLESTEROL (test 50 MG/DL >39 code = 2220) CALC LDL CHOL (test 111 MG/DL <100 H NOTE: C ALCULATED LDL code = 2237) IS BASED ON ANANDA-SÁNCHEZ METHOD WHICHINCLUDES ADJUSTABLE TRIGLYCERIDE:VL DL CHOLESTEROL RAT IO.THIS FACTOR VARIES B Y MEASURED TRIGLY CERIDE AND NON-HDLCHOL ESTEROL CONCENTRATIONS WITH INCREASED CALCU LATED LDL SEENIN HIGH ER TRIGLYCERIDE OR LOWER NON-HDL SPECIME NS. FOR MOREINFORMATION , SEE CLIENT ANNOUNCE MENT AT [email or web address] RISK RATIO LDL/HDL 2.22 RATIO <3.22 (test code = 2238) HEMOGLOBIN [id number] 05:07:48 Test Item Value Reference Range Interpretation Comments HEMOGLOBIN A1c (test 6.6 % 4.2-5.6 H AMERIC AN DIABETES code = 10746) ASSOCIATION IDELINES FOR HGB A1C: PREDIABETES/INC REASED RISK . . . . . . . 5.7 -6.4% DIAGNOSIS OF DI ABETES . . . . . . . . . >=6 .5% WITH CONFIRMATION OR APPROPRIATE SYMPTOMS NOTE: ASSAY MAY BE AFFECTED BY HEMOGLOBINOPATH IES (SICKLE CELL ANEMIA, S- C DISEASE, OTHERS) OR RUBEN FICIALLY LOWERED BY DECR EASED RED CELL SURVIVAL ( HEMOLYTIC ANEMIAS, BLOOD LOSS, ETC.). CONSIDER ALTERN ATE TESTING OR LABORATORY C ONSULTATION. [facility] has imp ortant pathology staff changes effective 01/07. New pathology s taff will provide uninter rupted, excellent patie nt care and clinical consul tation. See URL: [email or web address]. UNLESS OTHE RWISE INDICATED, [facility] [employer]. [address] [place] [address] LABORATOR Y DIRECTOR: TOBIN PEDRAZA M.D. CLIA NUMBER [id number] CAP ACCREDITATION N O. [id number] HEMOGLOBIN [id number] 04:40:38 Test Item Value Reference Range Interpretation Comments HEMOGLOBIN A1c (test 6.2 % 4.2-5.6 H UNLESS OTHERWISE code = 48471) INDICATED, ALL TESTING PERFORMED [facility] PATH[facility] [employer]. [address] [place] [address] LABORA TOR DIRECTOR: MIGUEL SERRANO M.D. CLIA NUMBER [id number] CAP ACCREDITATION N O. [id number] COMPREHENSIVE METABOLIC [id number] 04:33:48 Test Item Value Reference Range Interpretation Comments GLUCOSE (test code = 95 MG/DL 70-99 2216) BUN (test code = 11 MG/DL 6-20 2207) CREATININE (test 0.50 MG/DL 0.60-1.30 L code = 2214) eGFR (2020 CKD-EPI) 117 >60 (test code = 42758) ML/MIN/1.73 CALC BUN/CREAT (test 22 RATIO 6-28 code = 2235) SODIUM (test code = 141 MEQ/L 275-483 9587) POTASSIUM (test code 3.8 MEQ/L 3.5-5.4 = 2228) CHLORIDE (test code 103 MEQ/L 95-107 = 2215) CARBON DIOXIDE (test 25 MEQ/L 19-31 code = 2206) CALCIUM (test code = 9.6 MG/DL 8.5-10.5 2208) PROTEIN, TOTAL (test 7.8 G/DL 6.1-8.3 code = 2229) ALBUMIN (test code = 4.6 G/DL 3.5-5.2 2200) CALC GLOBULIN (test 3.2 G/DL 1.9-3.7 code = 2240) CALC A/G RATIO (test 1.4 RATIO 1.0-2.6 code = 2234) BILIRUBIN, TOTAL 0.4 MG/DL See_Comment [Automated message] (test code = 2207) The syste m which generated this result transmit trell reference range : <=1.2. The refe rence range was not u sed to interpret th is result as normal/abnormal . ALKALINE PHOSPHATASE 116 U/L 40-118 (test code = 2204) AST (test code = 33 U/L 9-40 2217) ALT (test code = 32 U/L -40 2218) LIPID [id number] 04:33:48 Test Item Value Reference Range Interpretation Comments CHOLESTEROL (test 237 MG/DL <200 H code = 2210) TRIGLYCERIDES (test 147 MG/DL <150 code = 2232) HDL CHOLESTEROL (test 48 MG/DL >39 code = 2220) CALC LDL CHOL (test 162 MG/DL <100 H NOTE: C ALCULATED LDL code = 2237) IS BASED ON ANANDA-SÁNCHEZ METHOD WHICHINCLUDES ADJUSTABLE TRIGLYCERIDE:VL DL CHOLESTEROL RAT IO.THIS FACTOR VARIES B Y MEASURED TRIGLY CERIDE AND NON-HDLCHOL ESTEROL CONCENTRATIONS WITH INCREASED CALCU LATED LDL SEENIN HIGH ER TRIGLYCERIDE OR LOWER NON-HDL SPECIME NS. FOR MOREINFORMATION , SEE CLIENT ANNOUNCE MENT AT [email or web address] /CalcLDL-C RISK RATIO LDL/HDL 3.38 RATIO <3.22 H (test code = 2238) COMPREHENSIVE METABOLIC [id number] 23:58:35 Test Item Value Reference Range Interpretation Comments GLUCOSE (test code = 124 MG/DL 70-99 H 2216) BUN (test code = 14 MG/DL 6-20 2207) CREATININE (test 0.47 MG/DL 0.60-1.30 L code = 221) eGFR (2020 CKD-EPI) 119 >60 (test code = 68757) ML/MIN/1.73 CALC BUN/CREAT (test 30 RATIO 6-28 H code = 2235) SODIUM (test code = 141 MEQ/L 564-042 3828) POTASSIUM (test code 4.2 MEQ/L 3.5-5.4 = 2227) CHLORIDE (test code 103 MEQ/L 95-107 = 2214) CARBON DIOXIDE (test 24 MEQ/L 19-31 code = 2205) CALCIUM (test code = 9.6 MG/DL 8.5-10.5 2208) PROTEIN, TOTAL (test 7.8 G/DL 6.1-8.3 code = 2228) ALBUMIN (test code = 4.5 G/DL 3.5-5.2 2200) CALC GLOBULIN (test 3.3 G/DL 1.9-3.7 code = 2240) CALC A/G RATIO (test 1.4 RATIO 1.0-2.6 code = 2234) BILIRUBIN, TOTAL 0.4 MG/DL See_Comment [Automated message] (test code = 220) The syste m which generated this result transmit trell reference range : <=1.2. The refe rence range was not u sed to interpret th is result as normal/abnormal . ALKALINE PHOSPHATASE 130 U/L 40-118 H (test code = 2203) AST (test code = 37 U/L 9-40 2217) ALT (test code = 44 U/L 5-40 H 2218) LIPID [id number] 23:58:35 Test Item Value Reference Range Interpretation Comments CHOLESTEROL (test 237 MG/DL <200 H code = 2210) TRIGLYCERIDES (test 127 MG/DL <150 code = 2232) HDL CHOLESTEROL (test 49 MG/DL >39 code = 2220) CALC LDL CHOL (test 163 MG/DL <100 H NOTE: C ALCULATED LDL code = 2237) IS BASED ON ANANDA-SÁNCHEZ METHOD WHICHINCLUDES ADJUSTABLE TRIGLYCERIDE:VL DL CHOLESTEROL RAT IO.THIS FACTOR VARIES B Y MEASURED TRIGLY CERIDE AND NON-HDLCHOL ESTEROL CONCENTRATIONS WITH INCREASED CALCU LATED LDL SEENIN HIGH ER TRIGLYCERIDE OR LOWER NON-HDL SPECIME NS. FOR MOREINFORMATION , SEE CLIENT ANNOUNCE MENT AT [email or web address] [email or web address] RATIO LDL/HDL 3.33 RATIO <3.22 H UNLESS O THERWISE (test code = 2237) INDICATED , ALL TESTING PERFORMED [facility], [facility]. [address] [place] [id number] [place] [address] DIRECTOR: MIGUEL SERRANO M.D. CLIA NUMBER [id number] CAP ACCREDITATION N O. [id number] HEMOGLOBIN [id number] 04:12:18 Test Item Value Reference Range Interpretation Comments HEMOGLOBIN A1c (test code = 99590) 6.0 % 4.2-5.6 H CBC W/AUTO DIFF WITH [id number] 03:34:20 Test Item Value Reference Range Interpretation Comments WBC (test code = 7.0 K/UL 3.5-11.0 1001) RBC (test code = 3.94 M/UL 3.80-5.40 1002) HEMOGLOBIN (test code 12.7 G/DL 11.5-15.5 = 1003) HEMATOCRIT (test code 37.4 % 34.0-45.0 = 1004) MCV (test code = 94.9 fL 80.0-99.0 1005) MCH (test code = 32.2 PG 25.0-33.0 1006) MCHC (test code = 34.0 G/DL 31.0-36.0 1007) RDW (test code = 12.5 % 11.5-15.0 1038) NEUTROPHILS (test 71.2 % code = 1008) LYMPHOCYTES (test 22.3 % code = 1010) MONOCYTES (test code 4.4 % = 1011) EOSINOPHILS (test 1.4 % code = 1012) BASOPHILS (test code 0.6 % = 1013) IMMATURE GRANULOCYTES 0.1 % (test code = 1036) NUCLEATED RBCS (test 0.0 /100 WBC'S See_Comment [Aut omated code = 1065) message] The sy stem which generated this result transmitted reference range : 0.0. The refere nce range was not u sed to interpret th is result as normal/abnormal . PLATELET COUNT (test 217 K/UL 130-400 code = 1015) ABSOLUTE NEUTROPHILS 4.99 K/UL 1.50-7.50 (test code = 1066) ABSOLUTE LYMPHOCYTES 1.56 K/UL 1.00-4.00 (test code = 1067) ABSOLUTE MONOCYTES 0.31 K/UL 0.20-1.00 (test code = 1068) ABSOLUTE EOSINOPHILS 0.10 K/UL 0.00-0.50 (test code = 1040) ABSOLUTE BASOPHILS 0.04 K/UL 0.00-0.20 (test code = 1069) ABS IMMATURE 0.01 K/UL 0.00-0.10 GRANULOCYTES (test code = 1020) ABS NUCLEATED RBCS 0.00 K/UL 0.00-0.11 (test code = 70709) SARS-CoV-2 (COVID-19), RT-[id number] 16:30:16 Test Item Value Reference Interpretation Comments Range SARS-CoV-2 NEGATIVE SEE NOTE SARS-CoV-2 RNA NOT INTERPRETATION DETECTEDNegat malachi (test code = 80631) results do not preclude SARS-C oV-2 infection and s hould notbe used as t he sole basis for patie nt management deci sions. Negativeresults must be combined wit h clinical observ ations, patient history ,and epidemiological information. Op timum specimen types and timingfor peak viral levels during infections caus ed by SARS-CoV-2 have notbeen determi ivelisse. Collection of m ultiple specimens or ty pes ofspecimens may be necessary to de tect virus. Improper specimencollect ion and handling, seque nce variability und er primers/probes, or organism presen t below the limit of de tection may lead to falsenegative r esults. Positive and ne gative predictive valu es oftesting are h ighly dependent on prevalence. Fal se negative testre sults are more likely when prevalence is h igh. SOURCE (test code = NASOPHARYNGEAL Note: [place] [address]) Tera Te[place]al [place] l-Time RT-PCR. The exp ected result or refer ence range is NEGATI VE (Not Detected). For more information reg arding COVID-19 testin g to include clinicalinforma tion, methodology det ail, intended use, F DA authorization andrecommended fact sheets for haley ents or healthcare prov iders, see NewTest Announcement: SARS-CoV-2 (COV ID-19) by NAAT at URL below (note,fact shee ts are provided by met hod given in report:https:// www.[employer].com/clinic ians/cl ient-communicat ions/ Alternatively, see downloadable PD F fact sheet at:https://www. [employer]/COVID-19-R T-PCR UNLESS OTHERWIS E INDICATED, ALL TESTING PERFORMED [facility], [place]. [address] [place] [address], [place] [address] [facility] DIRECTOR: MIGUEL SERRANO M.D. CLIA NUMBER [id number] CAP ACCREDITATION N O. [id number] BREAST ULTRASOUND [id number] 12:35:53 - DIAG MAMM BILATERAL OLIVER CAD DIGITALBILATERAL DIGITAL DIAGNOSTIC MAMMOGRAM 3D/2D WITH CAD: 01/12/2020CLINICAL: 6 Month follow-up. Digital breast tomosynthesis was performed in addition to routine CC and MLO views. Current mammographic images were evaluated by either a [employer] M-Vu or a NXTM ImageWattvisioncker CAD (computer aided detection system). Comparison is made to exam dated 07/01/2019 mammogram - [facility]. The tissue of both breasts is heterogeneously dense. This may lower the sensitivity of mammography. There are nodular densities that most likely represent benign fibroadenomas, cysts, or nodular breast tissue, however this must be confirmed with ultrasound. No suspicious mass, architectural distortion, malignant type calcification, or lymph node abnormality detected. NEGATIV EBilateral ultrasound pending for additional evaluation. - BREAST ULTRASOUND BILATERALULTRASOUND OF BOTH BREASTS AND BOTH AXILLA: 01/12/2020Comparison is made to exam dated [facility] Real-time ultrasound of both breasts and both axilla and clinical breast exam were performed. No abnormalities were seen sonographically in either axilla. Benign solid masses. No evidence of malignancy. Unchanged from previous exam. IMPRESSION: BENIGN There is no sonographic evidence of malignancy. Patient has been informed that she has areas of dense breast tissue that could makeit difficult to find a small cancer. A screening mammogram and supplemental ultrasound for dense breast tissue is recommended in 1 year.Desiree Dahl M.D. dm/:01/12/2020 12:35:53 Land Economist: Marley WEIR, [facility]-FWletter sent: BIRADS 1-2 Combo FU Letter Mammogram BI-RADS:1 Negative Ultrasound BI-RADS: 2 BenignDIAG MAMM BILATERAL OLIVER CAD [id number] 12:35:53 - DIAG MAMM BILATERAL OLIVER CAD DIGITALBILATERAL DIGITAL DIAGNOSTIC MAMMOGRAM 3D/2D WITH CAD: 01/12/2020CLINICAL: 6 Month follow-up. Digital breast tomosynthesis was performed in addition to routine CC and MLO views. Current mammographic images were evaluated by either a [employer] M-Vu or a NXTM [employer]ayer CAD (computer aided detection system). Comparison is made to exam dated 07/01/2019 mammogram - [facility]. The tissue of both breasts [...] to exam [facility]. Real-time ultrasound of both breasts and both axilla and clinical breast exam were performed. No abnormalities were seen sonographically in either axilla. Benign solid masses. No evidence of malignancy. Unchanged from previous exam. IMPRESSION: BENIGN There is no sonographic evidence of malignancy. Patient has been informed that she has areas of dense breast tissue that could makeit difficult to find a small cancer. A screening mammogram and supplemental ultrasound for dense breast tissue is recommended in 1 year.Desiree Dahl M.D. dm/:01/12/2020 12:35:53 Land Economist: Marley Nicole FW, [facility]-FWletter sent: BIRADS 1-2 Combo FU Letter Mammogram BI-RADS:1 Negative Ultrasound BI-RADS: 2 Benign BREAST ULTRASOUND [id number] 13:52:45- BREAST ULTRASOUND BILATERALULTRASOUND OF BOTH BREASTS AND [...] demonstrate stability. Desiree Dahl M.D. dm/:08/08/2019 13:52:45 Land Economist: Sanjuanita Mack FW, [facility]-FWletter sent: Short Term Follow Up Ultrasound BI-RADS: 3 Probably benignSCR MAMM BILATERAL OLIVER CAD DIGITAL 2019-07-04 10:21:02 - SCR MAMM BILATERAL OLIVER CAD DIGITALBILATERAL FIRST EVER DIGITAL SCREENING MAMMOGRAM 3D/2D WITH CAD: 07/01/2019CLINICAL: Asymptomatic. Digital breast tomosynthesis was performed in addition to routineCC and MLO views. Current mammographic images were evaluated by either a [employer] M-Vu or a NXTM ImageChecker CAD (computer aided detection system). No prior exams were available for comparison. This is a baseline exam.The tissue of both breasts is heterogeneously dense. This may lower the sensitivity of mammography. There is a benign-appearing mass in the periareolar lateral left breast. A larger benign- appearing mass is noted superficially in the left breast lower inner quadrant 5- 6 cm from the nipple. No suspicious architectural distortion, malignant type calcification, or lymph node abnormality detected. IMPRESSION: INCOMPLETE ASSESSMENT: ADDITIONAL IMAGING EVALUATION RECOMMENDEDPrior exams are unavailable for stability assessment.Breast ultrasound is advised for further evaluation.Pillo Chi M.D. rb/:07/04/2019 10:21:02 Land Economist: Virginia Martinez MM, [facility]: Additional Imaging Mammogram BI-RADS: 0 Indeterminate
[2023-04-28 14:57] LABS: Absolute Lymphocytes (CBC) 1.7 K/uL (0.7-4.9); Hematocrit 36.3 % (36.0-45.0); Lymphocytes % 24.9 % (15.3-44.8); MCV 95.6 fL (80-100); MPV 8.7 fL (7.6-11.3)
[2023-04-28 14:58] LABS: Protime INR 1.05
[2023-04-28] MEDS ORDERED: NA CHLORIDE 0.9% 1,000 ML ONE (15:00)
[2023-04-28 15:06] LABS: Specific Gravity 1.005 (1.005-1.030); Urine Bacteria None Seen /HPF (<20); Urine Bilirubin NEGATIVE (Negative); Urine Blood Negative (Negative); Urine Clarity Turbid (Clear); Urine Color Colorless (Yellow); Urine Glucose NEGATIVE (Negative); Urine Mucus Slight /HPF (None Seen); Urine Protein NEGATIVE (Negative); Urine RBC <5 /HPF (None Seen); Urine Urobilinogen Normal (Normal); Urine pH 6.5 (5.0-7.0)
[2023-04-28 15:15] LABS: ALT/SGPT 40 U/L (13-56); AST/SGOT 27 U/L (15-37); Albumin 4.2 g/dL (3.4-5.0); Alkaline Phosphatase 72 U/L (45-117); BUN Blood Urea Nitrogen 14 mg/dL (7-18); Bicarbonate 29 mEq/L (21-32); Bilirubin Total 0.3 mg/dL (0.2-1.0); Creatine Phosphokinase 137 U/L (26-192); Glomerular Filtration Rate 108 ml/min (=/>90); Glucose Level 81 mg/dL (74-106); Magnesium 2.1 mg/dL (1.6-2.4); NT PRO-BNP 62 pg/mL (<125); Potassium 3.5 mEq/L (3.5-5.1); Protein, Total 8.7 g/dL (6.4-8.2); Sodium Level 137 mEq/L (136-145); Troponin High Sensitivity 3.5 pg/mL (<58.9)
--- NOTE | 2023-04-28 15:19 | RAD REPORT ---
EXAM DESCRIPTION: Jayesh Single View04/28/2023 2:29 pm CLINICAL HISTORY: cough COMPARISON: 2018 FINDINGS: The lungs appear clear of acute infiltrate. The heart is normal size IMPRESSION: No acute abnormalities displayed
[2023-04-28 15:20] LABS: Bilirubin Direct < 0.1 mg/dL (0-0.2); Bilirubin Indirect, Calculated ND mg/dL (0.2-0.8)
--- NOTE | 2023-04-28 15:42 | ER ---
Nurse's Notes [facility] Name: Mima Fisher Age: 47 yrs Sex: Female : 1975 Arrival Date: 04/28/2023 Time: 13:37 Bed 12 Private MD: Diagnosis: Heat exhaustion, unspecified;Anxiety disorder, unspecified Presentation: 04/28 14:03 Chief complaint: Patient states: was at work and the SC is out, my legs got wobbly and iw weak , I was drinking water but I stopped sweating, felt light headed but did not pass out, her legs still feel weak. Coronavirus screen: At this time, the client does not indicate any symptoms associated with coronavirus-19. Ebola Screen: Patient negative for fever greater than or equal to 101.5 degrees Fahrenheit, and additional compatible Ebola Virus Disease symptoms Patient denies exposure to infectious person. Patient denies travel to an Ebola-affected area in the 21 days before illness onset. No symptoms or risks identified at this time. Initial Sepsis Screen: Does the patient meet any 2 criteria? No. Patient's initial sepsis screen is negative. Does the patient have a suspected source of infection? No. Patient's initial sepsis screen is negative. Risk Assessment: Do you want to hurt yourself or someone else? Patient reports no desire to harm self or others. Onset of symptoms was April 28, 2023. 14:03 Method Of Arrival: EMS: [facility] iw 14:03 Acuity: TAMRA 3 iw Historical: - Allergies: 14:05 No Known Allergies; iw - PMHx: 14:05 Anxiety; Depression; Hyperlipidemia; Hypertension; Diabetes mellitus; iw - PSHx: 14:05 partial hysterectomy; iw Assessment: 15:57 General: Appears in no apparent distress. Behavior is calm, cooperative, appropriate mb9 for age. Pain: Denies pain. Neuro: Level of Consciousness is awake, alert, obeys commands, Oriented to person, place, time, situation, Appropriate for age. Respiratory: Airway is patent. Derm: Skin is pink, warm \T\ dry. Musculoskeletal: Range of motion: intact in all extremities. Vital Signs: 14:03 BP 164 / 85; Pulse 65; Resp 16; Temp 97.7; Pulse Ox 99% on R/A; Weight 86.18 kg; Height iw 5 ft. 2 in. ; Pain 5/10; 15:57 BP 145 / 74; Pulse 74; Resp 18; Pulse Ox 100% ; mb9 14:03 Body Mass Index 34.75 (86.18 kg, 157.48 cm) 14:03 Pain Scale: Adult ED Course: 13:38 Patient arrived in ED. mr 14:05 Triage completed. iw 14:05 Arm band placed on. 14:17 Sy Ngo MD is Attending Physician. [facility] 14:31 XRAY Chest (1 view) In Process Unspecified. EDMT 14:49 Initial lab(s) drawn, by vt, sent to lab. Inserted saline lock: 20 gauge in left aa5 antecubital area, using aseptic technique. Blood collected. 15:05 EKG done, by ED staff, reviewed by Sy Ngo MD. aa5 15:58 No provider procedures requiring assistance completed. IV discontinued, intact, mb9 bleeding controlled, No redness/swelling at site. Pressure dressing applied. Administered Medications: 14:57 Drug: NS 0.9% IV 1000 ml Route: IV; Rate: 1 bolus; Site: left antecubital; aa5 Outcome: 15:41 Discharge ordered by . [facility] 15:58 Discharged to home ambulatory. mb9 15:58 Condition: stable 15:58 Discharge instructions given to patient, Instructed on discharge instructions, follow up and referral plans. Demonstrated understanding of instructions, follow-up care. 15:58 Patient left the ED. mb9 Signatures: Dispatcher [employer] EDMT Sy Ngo MD MD cha Rivera, Mary mr Williams, Irene RN Tanja Finley RN IZABELLA [facility] Liliana Montenegro, RN RN mb9
--- NOTE | 2023-04-28 15:42 | EDPHYS ---
Physician Documentation [facility] Name: Mima Fisher Age: 47 yrs Sex: Female : 1975 Arrival Date: 04/28/2023 Time: 13:37 Bed 12 Private MD: ED Physician Sy Ngo HPI: 04/28 15:36 This 47 yrs old Female presents to ER via EMS with complaints of Heat fior Exposure, Anxiety. 15:36 weak , heat exposed. Onset: The symptoms/episode began/occurred just prior to arrival. fior Severity of symptoms: At their worst the symptoms were mild moderate in the emergency department the symptoms are unchanged. The patient has not experienced similar symptoms in the past. Historical: - Allergies: 14:05 No Known Allergies; iw - PMHx: 14:05 Anxiety; Depression; Hyperlipidemia; Hypertension; Diabetes mellitus; iw - PSHx: 14:05 partial hysterectomy; iw ROS: 15:37 Constitutional: Negative for fever, chills, and weight loss, Eyes: Negative for injury, fior pain, redness, and discharge, ENT: Negative for injury, pain, and discharge, Neck: Negative for injury, pain, and swelling, Cardiovascular: Negative for chest pain, palpitations, and edema, Respiratory: Negative for shortness of breath, cough, wheezing, and pleuritic chest pain, Abdomen/GI: Negative for abdominal pain, nausea, vomiting, diarrhea, and constipation, Back: Negative for injury and pain, : Negative for injury, bleeding, discharge, and swelling, MS/Extremity: Negative for injury and deformity, Skin: Negative for injury, rash, and discoloration, Psych: Negative for depression, anxiety, suicide ideation, homicidal ideation, and hallucinations, Allergy/Immunology: Negative for hives, rash, and allergies, Endocrine: Negative for neck swelling, polydipsia, polyuria, polyphagia, and marked weight changes. 15:37 Skin: Negative for abrasions, burn, cellulitis, diaphoresis, discoloration, erythema, hematoma, jaundice, lesions, pallor, puncture, rash, swelling, ulceration, acute changes. Exam: 15:37 Constitutional: This is a well developed, well nourished patient who is awake, alert, fior and in no acute distress. Head/Face: Normocephalic, atraumatic. Eyes: Pupils equal round and reactive to light, extra-ocular motions intact. Lids and lashes normal. Conjunctiva and sclera are non-icteric and not injected. Cornea within normal limits. Periorbital areas with no swelling, redness, or edema. ENT: Nares patent. No nasal discharge, no septal abnormalities noted. Tympanic membranes are normal and external auditory canals are clear. Oropharynx with no redness, swelling, or masses, exudates, or evidence of obstruction, uvula midline. Mucous membranes moist. Neck: Trachea midline, no thyromegaly or masses palpated, and no cervical lymphadenopathy. Supple, full range of motion without nuchal rigidity, or vertebral point tenderness. No Meningismus. Chest/axilla: Normal chest wall appearance and motion. Nontender with no deformity. No lesions are appreciated. Cardiovascular: Regular rate and rhythm with a normal S1 and S2. No gallops, murmurs, or rubs. Normal PMI, no JVD. No pulse deficits. Respiratory: Lungs have equal breath sounds bilaterally, clear to auscultation and percussion. No rales, rhonchi or wheezes noted. No increased work of breathing, no retractions or nasal flaring. Abdomen/GI: Soft, non-tender, with normal bowel sounds. No distension or tympany. No guarding or rebound. No evidence of tenderness throughout. Back: No spinal tenderness. No costovertebral tenderness. Full range of motion. Skin: Warm, dry with normal turgor. Normal color with no rashes, no lesions, and no evidence of cellulitis. MS/ Extremity: Pulses equal, no cyanosis. Neurovascular intact. Full, normal range of motion. Neuro: Awake and alert, GCS 15, oriented to person, place, time, and situation. Cranial nerves II-XII grossly intact. Motor strength 5/5 in all extremities. Sensory grossly intact. Cerebellar exam normal. Normal gait. Psych: Awake, alert, with orientation to person, place and time. Behavior, mood, and affect are within normal limits. 15:37 ECG was reviewed by the Attending Physician. Vital Signs: 14:03 BP 164 / 85; Pulse 65; Resp 16; Temp 97.7; Pulse Ox 99% on R/A; Weight 86.18 kg; Height iw 5 ft. 2 in. ; Pain 5/10; 15:57 BP 145 / 74; Pulse 74; Resp 18; Pulse Ox 100% ; mb9 14:03 Body Mass Index 34.75 (86.18 kg, 157.48 cm) iw 14:03 Pain Scale: Adult iw MDM: 14:17 Patient medically screened. [facility] 15:38 Differential Diagnosis altered mental status. Data reviewed: vital signs, nurses notes, [facility] lab test result(s), CBC, electrolytes, hepatic panel, urinalysis, EKG, radiologic studies. Consideration of Admission/Observation Escalation of care including admission/observation considered. I considered the following discharge prescriptions or medication management in the emergency department Medications were administered in the Emergency Department. See MAR. Test considered but Not performed: CT: no ct head. Care significantly affected by the following chronic conditions: Diabetes, Hypertension, depression , anxiety, hyperlipidemia. 04/28 14:18 Order name: Basic Metabolic Panel; Complete Time: 15:28 [facility] 04/28 14:18 Order name: CBC with Diff; Complete Time: 15:28 [facility] 04/28 14:18 Order name: LFT's; Complete Time: 15:28 [facility] 04/28 14:18 Order name: Magnesium; Complete Time: 15:28 [facility] 04/28 14:18 Order name: NT PRO-BNP; Complete Time: 15:28 [facility] 04/28 14:18 Order name: PT-INR; Complete Time: 15:28 [facility] 04/28 14:18 Order name: Troponin HS; Complete Time: 15:28 [facility] 04/28 14:18 Order name: CK; Complete Time: 15:28 [facility] 04/28 14:18 Order name: Urinalysis w/ reflexes; Complete Time: 15:28 [facility] 04/28 14:18 Order name: XRAY Chest (1 view); Complete Time: 15:28 [facility] 04/28 14:18 Order name: EKG; Complete Time: 14:19 [facility] 04/28 14:18 Order name: Cardiac monitoring [facility] 04/28 14:18 Order name: EKG - Nurse/Tech; Complete Time: 15:12 [facility] 04/28 14:18 Order name: IV Saline Lock; Complete Time: 14:50 [facility] 04/28 14:18 Order name: Labs collected and sent; Complete Time: 14:50 [facility] 04/28 14:18 Order name: O2 Per Protocol 04/28 14:18 Order name: O2 Sat Monitoring [facility] 04/28 14:18 Order name: PO challenge; Complete Time: 15:56 fior EC:37 Rate is 62 beats/min. Rhythm is regular. QRS [place] is Normal. CO interval is normal. QRS fior interval is normal. QT interval is normal. No Q waves. T waves are Normal. No ST changes noted. Clinical impression: NSR w/ Non-specific ST/T Changes and No evidence of ischemia. Interpreted by me. Reviewed by me. Administered Medications: 14:57 Drug: NS 0.9% IV 1000 ml Route: IV; Rate: 1 bolus; Site: left antecubital; aa5 Disposition Summary: 04/28/23 15:41 Discharge Ordered Location: Home fior Problem: new fior Symptoms: have improved fior Condition: Stable fior Diagnosis - Heat exhaustion, unspecified fior - Anxiety disorder, unspecified fior Followup: fior - With: Private Physician - When: 2 - 3 days - Reason: Recheck today's complaints, Continuance of care, Re-evaluation by your physician Discharge Instructions: - Discharge Summary Sheet fior - Panic Attack fior - Heat Exhaustion fior - Panic Attack, [id number] fior - Preventing Heat Exhaustion, Adult fior Forms: - Medication Reconciliation Form fior - Thank You Letter fior - Antibiotic Education fior - Prescription Opioid Use fior - Work release form mb9 Signatures: Dispatcher [employer] Sy Garcia MD MD cha Williams, Irene, RN Tanja Finley RN RN aa5
--- NOTE | 2023-04-29 19:10 | EKG ---
Test Date: 2023-04-28 Test Time: 15:05:02 Curing Machine Operator: ANTHONY MEASUREMENT RESULTS: Intervals: Rate: 62 LA: 154 QRSD: 98 QT: 454 QTc: 460 [place]: P: 57 LA: 154 QRS: 40 T: 44 INTERPRETIVE STATEMENTS: Normal sinus rhythm with sinus arrhythmia Incomplete right bundle branch block Borderline ECG Compared to ECG 04/12/2018 18:11:25 Incomplete right bundle-branch block now present Sinus bradycardia no longer present Electronically Signed On 04-29-23 19:08:54 CDT by Douglas Washington
== END 2023-04-28 15:58 | disposition home or self-care (01) ==
LOC: ER 13:37
DX: T67.5XXA Heat exhaustion, unspecified, initial encounter (principal); F41.9 Anxiety disorder, unspecified
CPT/HCPCS: 36415; 71045; 80048; 80076; 81001; 82550; 83735; 83880; 84484; 85025; 85610; 93005; J7030

== ENCOUNTER 2025-08-08 19:09 | Emergency (ER) | payer SELFPAY ==
--- OUTSIDE RECORDS SUMMARY | 2025-08-08 19:11 | XMS REPORT | Clinical Summary ---
Author Name Unknown Organization [facility] Address [address] [place] [address] Care Team Providers Care Roofing Subcontractor Name Role Phone Tania Abarca Unavailable Tania Abarca Unavailable Encounters Date Type Department Care Team Description 04/06/2025 Documentation MD Ngo Moss [address] [address] Aislinn Copeland RN 03/13/2025 8:15 PM CDT Ancillary Procedure Image Library [address] [place] [id number] Cancer 03/13/2025 8:10 PM CDT Ancillary Procedure Image Library [address] [place] [id number] Cancer 03/13/2025 8:05 PM CDT Ancillary Procedure Image Library [address] [place] [address] Cancer 03/13/2025 8:00 PM CDT Ancillary Procedure Image Library [address] [place] [id number] Cancer 03/10/2025 9:35 AM CDT Ancillary Procedure Mobile Mammography [address] [place] [id number] Pato Lang MD Screening mammography after 08/08/2024 Surgical History Surgery Date Site/Laterality Comments HYSTERECTOMY 11/09/2014 - 11/08/2015 39 yrs old Social History Tobacco Use Types Packs/Day Years Used Date Smoking Tobacco: Never Assessed Comments No Sex and Gender Information Value Date Recorded Sex Assigned at Not on file Legal Sex Female 9:25 AM CDT Gender Identity Not on file Sexual Orientation Not on file Obstetrics History Para Term AB IAB SAB Ectopic Multiple Livin g Live Births 3 3 3 Date Outcome GA Total Labor Labor/2nd/3rd Weight Sex Type Anes PTL Lilo A1 A5 Name Clin Term Term Term Plan of Treatment Health Maintenance Due Date Last Done Comments COVID-19 Vaccine (2024-2 6 season) 2025 08/12/2021, 06/25/2021 Influenza Vaccine (#1) 2025 Pneumococcal Vaccine Aged Out No long er eligible based on patient's age to complete this topic Procedures Procedure Name Priority Date/Time Associated Diagnosis Comments MOBILE MAMMO DIGITAL SCREENING BILATERAL W STEPHEN Routine 03/10/2025 9:44 AM CDT Screening mammography after 08/08/2024 Results * Mobile Mammography Screening Bilateral with Stephen (03/10/2025 9:44 AM CDT) Anatomical Region Laterality Modality Breast Bilateral Mammography Addenda Addendum by Deisi Ham MD on 04/06/2025 8:45 AM CDT Prior mammograms from 01/12/2020 and 07/01/2019 are now available for review. Right breast: No new mass, architectural distortion, or suspicious calcifications. There has been no significant interval change Left breast: No new mass, architectural distortion, or suspicious calcifications. There has been no significant interval change IMPRESSION: No mammographic evidence of malignancy Overall BI-RADS Category: 2 - Benign Recommend annual screening mammogram (due 03/2026) Impressions 03/13/2025 11:25 AM CDT Left 1) Mass: Left breast mass in the outer central region. 2) Mass: Left breast mass in the lower inner quadrant in the anterior depth. Right 3) Asymmetry: Right breast asymmetry in the inner region. Overall BI-RADS Category: 0 - Incomplete: Needs Additional Imaging Evaluation Additional Imaging: Diagnostic Mammogram and Possible Breast Ultrasound is recommended for both breasts. I personally reviewed these image(s) along with the resident's/fellow's interpretations, certify that if a procedure was performed I was physically present, and agree with the final report. Narrative 03/13/2025 11:25 AM CDT CLINICAL INDICATION: Patient is a 49 y.o. female and is seen for screening. Mobile Mammography Screening Bilateral with Stephen Computer-aided detection was utilized by the radiologist in the interpretation of this examination. Tomosynthesis was performed in CC and MLO projections. COMPARISON: No comparisons were made when reading this study. FINDINGS: The breasts are heterogeneously dense, which may obscure small masses. Left 1) Mass: There is a mass seen in the outer central region of the left breast, 2 cm from the nipple. This is best seen on CC image #20 of 70 and image #26 of 76. 2) Mass: There is a mass seen in the lower inner quadrant of the left breast in the anterior depth, 6 cm from the nipple. This is best seen on CC image #9 of 70 and MLO image #38 of 76. Right 3) Asymmetry: There is an asymmetry seen in the inner region of the right breast, 6 cm from the nipple. This is best seen on CC image #38 of 67. Tania Abarca [facility] ORDERABLES Edite d Result - Final after 08/08/2024 Advance Directives * Full Code (Latest Code Status on File) Date Activated Date Inactivated Comments 04/06/2025 9:11 AM Update based o n Advanced Directive Documentation Care Teams Roofing Subcontractor Relationship Specialty Start Date End Date Tania Abarca [address] [place] [address] PCP - External Referring Family Practice 03/03/25 Tania Abarca [address] [place] [address] [email or web address] PCP - External Follow Up A Family Practice 03/03/25
--- NOTE | 2025-08-08 19:27 | ER ---
Nurse's Notes [facility] Name: Mima Fisher Age: 49 yrs Sex: Female : 1975 Arrival Date: 08/08/2025 Time: 19:09 Bed 23 Private MD: Diagnosis: Maxillary dental pain left side Presentation: 08/08 19:14 Chief complaint: Patient states: I have a bad tooth ache on top left that started this bm8 afternoon. Coronavirus screen: Vaccine status: Patient reports receiving the 2nd dose of the covid vaccine. At this time, the client does not indicate any symptoms associated with coronavirus-19. Ebola Screen: Patient negative for fever greater than or equal to 101.5 degrees Fahrenheit, and additional compatible Ebola Virus Disease symptoms Patient denies exposure to infectious person. Patient denies travel to an Ebola-affected area in the 21 days before illness onset. No symptoms or risks identified at this time. Initial Sepsis Screen: Does the patient meet any 2 criteria? No. Patient's initial sepsis screen is negative. Does the patient have a suspected source of infection? No. Patient's initial sepsis screen is negative. Risk Assessment: Do you want to hurt yourself or someone else? Patient reports no desire to harm self or others. Onset of symptoms was August 08, 2025 at 12:00. 19:14 Method Of Arrival: Ambulatory bm8 19:14 Acuity: TAMRA 4 bm8 Triage Assessment: 19:16 General: Appears in no apparent distress. comfortable, Behavior is calm, cooperative, bm8 appropriate for age, Smells of. Pain: Complains of pain in upper left first molar and upper left second molar Pain currently is 10 out of 10 on a pain scale. EENT: Reports pain Pain is 10 out of 10 on a pain scale. Neuro: No deficits noted. Cardiovascular: No deficits noted. Respiratory: No deficits noted. GI: No signs and/or symptoms were reported involving the gastrointestinal system. : No signs and/or symptoms were reported regarding the genitourinary system. Derm: No signs and/or symptoms reported regarding the dermatologic system. Musculoskeletal: No signs and/or symptoms reported regarding the musculoskeletal system. 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 - Infectious Disease History:: Denies. - Social history:: Smoking status: Patient denies any tobacco usage or history of. Screenin:34 [facility] ED Fall Risk Assessment (Adult) History of falling in the last 3 months, jb4 including since admission No falls in past 3 months (0 pts) Confusion or Disorientation No (0 pts) Intoxicated or Sedated No (0 pts) Impaired Gait No (0 pts) Mobility Assist Device Used No (0 pt) Altered Elimination No (0 pt) Score/Fall Risk Level 0 - 2 = Low Risk Oriented to surroundings, Maintained a safe environment. Abuse screen: Denies threats or abuse. Nutritional screening: No deficits noted. Tuberculosis screening: No symptoms or risk factors identified. Assessment: 19:34 Reassessment: Patient appears in no apparent distress at this time. Patient and/or jb4 family updated on plan of care and expected duration. Pain level reassessed. Patient is alert, oriented x 3, equal unlabored respirations, skin warm/dry/pink. Vital Signs: 19:14 BP 161 / 91; Pulse 78; Resp 17; Temp 97.2; Pulse Ox 97% ; Weight 83.91 kg; Height 5 ft. bm8 2 in. ; Pain 10/10; 19:14 Body Mass Index 33.84 (83.91 kg, 157.48 cm) bm8 19:14 Pain Scale: Adult bm8 ED Course: 19:11 Patient arrived in ED. im 19:12 Luz Johnson MD is Attending Physician. sp3 19:16 Triage completed. bm8 19:16 Arm band placed on right wrist. bm8 19:34 Patient has correct armband on for positive identification. Bed in low position. Call jb4 light in reach. Side rails up X 1. Provided Education on: discharge insytuctions. 19:34 No provider procedures requiring assistance completed. Patient did not have IV access jb4 during this emergency room visit. Administered Medications: 19:33 Drug: HYDROcodone-acetaminophen PO 5 mg-325 mg 2 tabs PO once Route: PO; jb4 19:33 Follow up: Response: Medication administered at discharge. jb4 Medication: 19:34 VIS not applicable for this client. jb4 Outcome: 19:27 Discharge ordered by . sp3 19:34 Discharged to home ambulatory, with family, jb4 19:34 Condition: stable 19:34 Discharge instructions given to patient, Instructed on discharge instructions, follow up and referral plans. no drinking with medication, no driving heavy equipment, medication usage, Demonstrated understanding of instructions, follow-up care, medications, Prescriptions given X 2, 19:35 Patient left the ED. jb4 Signatures: Sam Ortega, RN RN jb4 Luz Johnson MD MD sp3 Marce Diaz Brad, RN RN bm8
--- NOTE | 2025-08-08 19:27 | EDPHYS ---
Physician Documentation [facility] Name: Mima Fisher Age: 49 yrs Sex: Female : 1975 Arrival Date: 08/08/2025 Time: 19:09 Bed 23 Private MD: ED Physician Luz Johnson HPI: 08/08 19:25 This 49 yrs old Female presents to ER via Ambulatory with complaints of sp3 Toothache. 19:25 49-year-old female with history of diabetes, hypertension presents to the ED with left sp3 maxillary second to the back molar pain after eating food earlier today. Patient states the pain is excruciating and sharp in nature. She has had no cavities or other prior dental problems or in the past. She sees a dental clinic when she needs anything. She denies any fever, throat pain, tongue swelling, throat swelling, neck swelling, shortness of breath, chest pain, or any other signs or symptoms on ROS at this time.. 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 - Infectious Disease History:: Denies. - Social history:: Smoking status: Patient denies any tobacco usage or history of. ROS: 19:26 Constitutional: Negative for fever, chills, and weight loss, Eyes: Negative for injury, sp3 pain, redness, and discharge, Neck: Negative for injury, pain, and swelling, Cardiovascular: Negative for chest pain, palpitations, and edema, Respiratory: Negative for shortness of breath, cough, wheezing, and pleuritic chest pain, Abdomen/GI: Negative for abdominal pain, nausea, vomiting, diarrhea, and constipation, Back: Negative for injury and pain, MS/Extremity: Negative for injury and deformity, Skin: Negative for injury, rash, and discoloration, Neuro: Negative for headache, weakness, numbness, tingling, and seizure, 19:26 All other systems are negative, Exam: 19:26 Constitutional: This is a well developed, well nourished patient who is awake, alert, sp3 and in no acute distress. Head/Face: Normocephalic, atraumatic. Eyes: Pupils equal round and reactive to light, extra-ocular motions intact. Lids and lashes normal. Conjunctiva and sclera are non-icteric and not injected. Cornea within normal limits. Periorbital areas with no swelling, redness, or edema. Neck: Trachea midline, no thyromegaly or masses palpated, and no cervical lymphadenopathy. Supple, full range of motion without nuchal rigidity, or vertebral point tenderness. No Meningismus. Chest/axilla: Normal chest wall appearance and motion. Nontender with no deformity. No lesions are appreciated. Cardiovascular: Regular rate and rhythm with a normal S1 and S2. No gallops, murmurs, or rubs. Normal PMI, no JVD. No pulse deficits. Respiratory: Lungs have equal breath sounds bilaterally, clear to auscultation and percussion. No rales, rhonchi or wheezes noted. No increased work of breathing, no retractions or nasal flaring. Abdomen/GI: Soft, non-tender, with normal bowel sounds. No distension or tympany. No guarding or rebound. No evidence of tenderness throughout. Back: No spinal tenderness. No costovertebral tenderness. Full range of motion. Skin: Warm, dry with normal turgor. Normal color with no rashes, no lesions, and no evidence of cellulitis. MS/ Extremity: Pulses equal, no cyanosis. Neurovascular intact. Full, normal range of motion. Neuro: Awake and alert, GCS 15, oriented to person, place, time, and situation. Cranial nerves II-XII grossly intact. Motor strength 5/5 in all extremities. Sensory grossly intact. Cerebellar exam normal. Normal gait. 19:26 ENT: Pain to percussion on second to the last molar on the maxillary top side on the left side. No obvious swelling or bleeding noted.. Vital Signs: 19:14 BP 161 / 91; Pulse 78; Resp 17; Temp 97.2; Pulse Ox 97% ; Weight 83.91 kg; Height 5 ft. bm8 2 in. ; Pain 10/10; 19:14 Body Mass Index 33.84 (83.91 kg, 157.48 cm) bm8 19:14 Pain Scale: Adult bm8 MDM: 19:14 Medical Screening Exam initiated sp3 19:26 Data reviewed: vital signs, nurses notes. ED course: Differential diagnosis includes sp3 dental fracture versus early dental infection. Will place patient on antibiotics and pain control and follow-up with dental clinic.. Administered Medications: 19:33 Drug: HYDROcodone-acetaminophen PO 5 mg-325 mg 2 tabs PO once Route: PO; jb4 19:33 Follow up: Response: Medication administered at discharge. jb4 Disposition Summary: 08/08/25 19:27 Discharge Ordered Notes: Location: Home sp3 Condition: Stable sp3 Diagnosis - Maxillary dental pain left side sp3 Followup: sp3 - With: Private Physician - When: Upon discharge from the Emergency Department - Reason: Continuance of care Discharge Instructions: - Discharge Summary Sheet sp3 - Dental Pain sp3 Forms: - Medication Reconciliation Form sp3 - Antibiotic Education sp3 - Prescription Opioid Use sp3 - Patient Portal Instructions sp3 - Leadership Thank You Letter sp3 Prescriptions: - Augmentin 875-125 mg Oral Tablet - take 1 tablet ORAL route every 12 hours for 10 days; 20 tablet; Refills: 0, sp3 Product Selection Permitted - Tramadol 50 mg Oral Tablet - take 1 tablet ORAL route every 8 hours as needed; 12 tablet; Refills: 0, sp3 Product Selection Permitted Signatures: Sam Ortega, RN RN jb4 Luz Johnson MD MD sp3 Percy Urena RN RN bm8
[2025-08-08] MEDS ORDERED: HYDROCODONE/APAP 5/325 MG TAB ONE (19:30)
[2025-08-08 20:05] VITALS: BP 161/91; TEMP 97.2; O2SAT 97
== END 2025-08-08 19:35 | disposition home or self-care (01) ==
LOC: ER 19:09
DX: R68.84 Jaw pain (principal); E11.9 Type 2 diabetes mellitus without complications; I10 Essential (primary) hypertension
CPT/HCPCS: 99283